=== PATIENT | male | born 1985 | race Caucasian/White ===

== ENCOUNTER 2023-12-16 19:56 | Observation (INO) | payer OTHER ==
--- NOTE | 2023-12-16 20:31 | ED ---
General Adult HPI - General Chief complaint: Extremity Problem,Nontraumatic Stated complaint: Facial Swelling, Legs Swelling Time Seen by Provider: 12/16/23 20:15 Source: patient, EMS, RN notes reviewed Mode of arrival: EMS - History of Present Illness Initial comments: 38-year-old male with history of alcoholic cirrhosis of the liver and hepatitis C who presents emergency department via EMS from incarceration for chief complaint of edema. Patient states over the past 2 days he has been experiencing bilateral lower extremity edema in addition to thyroid edema. Patient denies pain with extraocular eye movement, blurry or double vision. Patient does take 20 mg of furosemide daily for water retention and has been taking this as prescribed.. He is denying abdominal pain, nausea, vomiting, fevers, chills, shortness of breath, chest pain or difficulty breathing. Patient was started on Rocephin prescribed by provider at [facility] with concern for oral infection. - Related Data Home Medications Medication Instructions Recorded Confirmed cloNIDine HCL [Catapres] 0.1 mg PO DAILY 08/18/14 10/29/14 raNITIdine HCL [Zantac] 150 mg PO DAILY 08/18/14 10/29/14 Buprenorphine HCl/Naloxone HCl 1 each SL DAILY 10/29/14 10/29/14 [Suboxone 8 mg-2 mg Sl Film] Allergies Allergy/AdvReac Type Severity Reaction Status Date / Time No Known Allergies Allergy Verified 12/16/23 20:11 Review of Systems ROS Statement: Those systems with pertinent positive or pertinent negative responses have been documented in the HPI. ROS Other: All systems not noted in ROS Statement are negative. Past Medical History Past Medical History: Hypertension History of Any Multi-Drug Resistant Organisms: None Reported Past Surgical History: Tonsillectomy Past Psychological History: No Psychological Hx Reported Past Alcohol Use History: Daily Past Drug Use History: IV Drug Use, Marijuana, Prescription Drug Abuse General Exam General appearance: alert, in no apparent distress Head exam: Present: atraumatic, normocephalic, normal inspection Eye exam: Present: normal appearance, PERRL, periorbital swelling Expanded Sclera/Conjunctival: Exudate: Bilateral ENT exam: Present: normal exam, mucous membranes moist Neck exam: Present: normal inspection. Absent: tenderness, meningismus, lymphadenopathy Respiratory exam: Present: normal lung sounds bilaterally, decreased breath sounds. Absent: respiratory distress, wheezes, rales, rhonchi, stridor Cardiovascular Exam: Present: regular rate, normal rhythm, normal heart sounds. Absent: systolic murmur, diastolic murmur, rubs, gallop, clicks GI/Abdominal exam: Present: soft, distended, normal bowel sounds. Absent: tenderness, guarding, rebound, rigid Extremities exam: Present: pedal edema, other (bilateral 1+ lower extremity pitting edema, edema of the bilateral upper extremities) Back exam: Present: normal inspection Neurological exam: Present: alert, oriented X3, CN II-XII intact Psychiatric exam: Present: normal affect, normal mood Skin exam: Present: warm, dry, intact, normal color. Absent: rash Course Vital Signs 12/16/23 12/16/23 19:58 23:29 Temperature 98.1 F Pulse Rate 59 L 44 L Respiratory 18 18 Rate Blood Pressure 135/98 111/61 O2 Sat by Pulse 96 96 Oximetry Medical Decision Making - Medical Decision Making Was pt. sent in by a medical professional or institution (, PA, PLASTICS FACTORY WORKER, urgent care, hospital, or jail...) When possible be specific @ -No Did you speak to anyone other than the patient for history (EMS, parent, family, police, friend...)? What history was obtained from this source @ -No Did you review nursing and triage notes (agree or disagree)? Why? @ -I reviewed and agree with nursing and triage notes Were old charts reviewed (outside hosp., previous admission, EMS record, old EKG, old radiological studies, urgent care reports/EKG's, jail records)? Report findings @ -No old charts were reviewed Differential Diagnosis (chest pain, altered mental status, abdominal pain women, abdominal pain men, vaginal bleeding, weakness, fever, dyspnea, syncope, headache, dizziness, GI bleed, back pain, seizure, CVA, palpatations, mental health, musculoskeletal)? @ -Congestive heart failure, acute kidney injury, angioedema, anaphylaxis, allergic reaction, contact dermatitis, this list is not all inclusive. EKG interpreted by me (3pts min.). @ -none X-rays interpreted by me (1pt min.). @ -chest X-ray no acute cardiopulmonary process or disease. CT interpreted by me (1pt min.). @ -None done U/S interpreted by me (1pt. min.). @ -None done What testing was considered but not performed or refused? (CT, X-rays, U/S, labs)? Why? @ -None What meds were considered but not given or refused? Why? @ -None Did you discuss the management of the patient with other professionals (professionals i.e. , PA, PLASTICS FACTORY WORKER, lab, RT, psych nurse, social media director, superintendent electric power, teacher, ground nuclear weapons assembly officer, medical case worker)? Give summary @ -spoke with sound internal medicine physician, Dr. Wong, in regard to admission of the patient for peripheral edema and IV diuresis. Was smoking cessation discussed for >3mins.? @ -No Was critical care preformed (if so, how long)? @ -No Were there social determinants of health that impacted care today? How? (Homelessness, low income, unemployed, alcoholism, drug addiction, transpor tation, low edu. Level, literacy, decrease access to med. care, [facility], rehab)? @ -No Was there de-escalation of care discussed even if they declined (Discuss DNR or withdrawal of care, Hospice)? DNR status @ -No What co-morbidities impacted this encounter? (DM, HTN, Smoking, COPD, CAD, Cancer, CVA, ARF, Chemo, Hep., AIDS, mental health diagnosis, sleep apnea, morbid obesity)? @ -None Was patient admitted / discharged? Hospital course, mention meds given and route, prescriptions, significant lab abnormalities, going to OR and other pertinent info. @ -Admitted. 38-year-old male with edema. On examination patient does have bilateral lower and upper extremity nonpitting edema. Bilateral showing edema, pupils are equal round reactive and no pain on extraocular eye movement and no periorbital tenderness on palpation. He was provided with allergy cocktail including steroids, Benadryl, Pepcid. On reevaluation patient's symptoms have only improved however not significantly. Chest x-ray no acute cardiopulmonary process. CBC reveals anemia 9.3 and thrombocytopenia 44, CMP with transaminitis with total bili 5.7, AST 109, alk phos 230. BNP and troponin within normal limits. Low albumin and total protein. Admitted to internal medicine for further evaluation of edema and continued on IV diuresis. Discussed with Dr. Galvan Undiagnosed new problem with uncertain prognosis? @ -No Drug Therapy requiring intensive monitoring for toxicity (Heparin, Nitro, Insulin, Cardizem)? @ -No Were any procedures done? @ -No Diagnosis/symptom? @ -peripheral edema Acute, or Chronic, or Acute on Chronic? @ -acute Uncomplicated (without systemic symptoms) or Complicated (systemic symptoms)? @ -complicated Side effects of treatment? @ -No Exacerbation, Progression, or Severe Exacerbation? @ -No Poses a threat to life or bodily function? How? (Chest pain, USA, DC, pneumonia, PE, COPD, DKA, ARF, appy, cholecystitis, CVA, Diverticulitis, Homicidal, Suicidal, threat to staff... and all critical care pts) @ -No - Lab Data Result diagrams: 12/16/23 22:00 12/16/23 22:00 Lab Results 12/16/23 12/16/23 12/16/23 Range/Units 22:00 22:00 22:00 WBC 3.9 (3.8-10.6) k/uL RBC 2.84 L (4.30-5.90) m/uL Hgb 9.3 L (13.0-17.5) gm/dL Hct 29.0 L (39.0-53.0) % MCV 102.2 H (80.0-100.0) fL MCH 32.6 (25.0-35.0) pg MCHC 31.9 (31.0-37.0) g/dL RDW 15.1 (11.5-15.5) % Plt Count 44 L (150-450) k/uL MPV 9.2 Neutrophils % 66 % Lymphocytes % 15 % Monocytes % 11 % Eosinophils % 3 % Basophils % 1 % Neutrophils # 2.6 (1.3-7.7) k/uL Lymphocytes # 0.6 L (1.0-4.8) k/uL Monocytes # 0.4 (0-1.0) k/uL Eosinophils # 0.1 (0-0.7) k/uL Basophils # 0.0 (0-0.2) k/uL Manual Slide Review Performed Polychromasia Present Hypochromasia Moderate Macrocytosis Slight Sodium 135 L (137-145) mmol/L Potassium 3.4 L (3.5-5.1) mmol/L Chloride 105 (98-107) mmol/L Carbon Dioxide 26 (22-30) mmol/L Anion Gap 4 mmol/L BUN 3 L (9-20) mg/dL Creatinine 0.51 L (0.66-1.25) mg/dL Est GFR (CKD-EPI)AfAm >90 (>60 ml/min/1.73 sqM) Est GFR (CKD-EPI)NonAf >90 (>60 ml/min/1.73 sqM) Glucose 94 (74-99) mg/dL Plasma Lactic Acid João 1.3 (0.7-2.0) mmol/L Calcium 7.3 L (8.4-10.2) mg/dL Phosphorus 3.0 (2.5-4.5) mg/dL Magnesium 1.6 (1.6-2.3) mg/dL Total Bilirubin 5.7 H (0.2-1.3) mg/dL AST 109 H (17-59) U/L ALT 37 (4-49) U/L Alkaline Phosphatase 230 H (38-126) U/L Troponin I (0.000-0.034) ng/mL NT-Pro-B Natriuret Pep 166 pg/mL Total Protein 5.5 L (6.3-8.2) g/dL Albumin 2.3 L (3.5-5.0) g/dL 12/16/23 Range/Units 22:00 WBC (3.8-10.6) k/uL RBC (4.30-5.90) m/uL Hgb (13.0-17.5) gm/dL Hct (39.0-53.0) % MCV (80.0-100.0) fL MCH (25.0-35.0) pg MCHC (31.0-37.0) g/dL RDW (11.5-15.5) % Plt Count (150-450) k/uL MPV Neutrophils % % Lymphocytes % % Monocytes % % Eosinophils % % Basophils % % Neutrophils # (1.3-7.7) k/uL Lymphocytes # (1.0-4.8) k/uL Monocytes # (0-1.0) k/uL Eosinophils # (0-0.7) k/uL Basophils # (0-0.2) k/uL Manual Slide Review Polychromasia Hypochromasia Macrocytosis Sodium (137-145) mmol/L Potassium (3.5-5.1) mmol/L Chloride (98-107) mmol/L Carbon Dioxide (22-30) mmol/L Anion Gap mmol/L BUN (9-20) mg/dL Creatinine (0.66-1.25) mg/dL Est GFR (CKD-EPI)AfAm (>60 ml/min/1.73 sqM) Est GFR (CKD-EPI)NonAf (>60 ml/min/1.73 sqM) Glucose (74-99) mg/dL Plasma Lactic Acid João (0.7-2.0) mmol/L Calcium (8.4-10.2) mg/dL Phosphorus (2.5-4.5) mg/dL Magnesium (1.6-2.3) mg/dL Total Bilirubin (0.2-1.3) mg/dL AST (17-59) U/L ALT (4-49) U/L Alkaline Phosphatase (38-126) U/L Troponin I <0.012 (0.000-0.034) ng/mL NT-Pro-B Natriuret Pep pg/mL Total Protein (6.3-8.2) g/dL Albumin (3.5-5.0) g/dL Disposition Clinical Impression: Peripheral edema, Edema of eyelid of both eyes Disposition: ADMITTED IP TO THIS [facility] Condition: Good Decision to Admit Reason: Admit from EC Decision Date: 12/17/23 Decision Time: 02:00
--- NOTE | 2023-12-16 21:58 | XR ---
EXAMINATION TYPE: XR chest 2V DATE OF EXAM: 12/16/2023 9:52 PM CLINICAL INDICATION: Male, 38 years old with history of anasarca, sob/CP; [facility] COMPARISON: None TECHNIQUE: XR chest 2V Frontal view of the chest. FINDINGS: Lungs/Pleura: There is no evidence of pleural effusion, focal consolidation, or pneumothorax. Pulmonary vascularity: Unremarkable. Heart/mediastinum: Cardiomediastinal silhouette is unremarkable. Musculoskeletal: No acute osseous pathology. Other findings: None IMPRESSION: No acute cardiopulmonary disease/process.
[2023-12-16 22:46] LABS: ALT 37 U/L (4-49); AST 109 U/L (17-59); African American GFR (CKD) >90 (>60 ml/min/1.73 sqM); Albumin 2.3 g/dL (3.5-5.0); Alkaline Phosphatase 230 U/L (38-126); Anion Gap 4 mmol/L; Blood Urea Nitrogen 3 mg/dL (9-20); Calcium 7.3 mg/dL (8.4-10.2); Carbon Dioxide 26 mmol/L (22-30); Chloride 105 mmol/L (98-107); Glucose 94 mg/dL (74-99); Magnesium 1.6 mg/dL (1.6-2.3); Non-African American GFR(CKD) >90 (>60 ml/min/1.73 sqM); Potassium 3.4 mmol/L (3.5-5.1); Sodium 135 mmol/L (137-145); Total Bilirubin 5.7 mg/dL (0.2-1.3); Total Protein 5.5 g/dL (6.3-8.2)
[2023-12-16 22:49] LABS: NT-Pro-B-Type Natriuretic Pept 166 pg/mL
[2023-12-16 23:21] LABS: Basophils % (A) 1 %; Eosinophils # (A) 0.1 k/uL (0-0.7); Eosinophils % (A) 3 %; HGB 9.3 gm/dL (13.0-17.5); Hypochromasia Moderate; Lymphocytes # (A) 0.6 k/uL (1.0-4.8); Lymphocytes % (A) 15 %; MCH 32.6 pg (25.0-35.0); MCHC 31.9 g/dL (31.0-37.0); MCV 102.2 fL (80.0-100.0); Macrocytosis Slight; Mean Platelet Volume 9.2; Monocytes # (A) 0.4 k/uL (0-1.0); Monocytes % (A) 11 %; Neutrophils # (A) 2.6 k/uL (1.3-7.7); Neutrophils % (A) 66 %; RBC 2.84 m/uL (4.30-5.90); RDW 15.1 % (11.5-15.5); WBC 3.9 k/uL (3.8-10.6)
[2023-12-17] MEDS: DEXAMETHASONE SOD PHOSPHATE 4 MG/ML 1 ML VIAL IVP STA (00:34)
[2023-12-17] MEDS: diphenhydrAMINE 50 MG/ML 1 ML VIAL IVP STA (00:34)
[2023-12-17] MEDS: FAMOTIDINE 20 MG/2 ML VIAL IV STA (00:35)
[2023-12-17] MEDS ORDERED: NALOXONE 0.4 MG/ML 1 ML VIAL IV PRN (02:00)
[2023-12-17 02:41] LABS: Platelet Count 44 k/uL (150-450); Polychromasia Present
[2023-12-17 04:11] LABS: INR 2.3 (<1.2); Partial Thromboplastin Time 36.8 sec (22.0-30.0); Prothrombin Time 23.2 sec (10.0-12.5)
--- NOTE | 2023-12-17 05:21 | P.HPIM ---
History of Present Illness H&P Date: 12/17/23 Patient is a 38-year-old male with a PMH of alcoholic cirrhosis, brought in from [facility] for anasarca and facial swelling. The patient reports that his symptoms started on Sunday morning suddenly with some head and face swelling. He does report chronic bilateral lower extremity edema which he attributes to his cirrhosis and has undergone paracentesis in the past. The patient has also been following with a open cut examiner out of [place]. He has been incarcerated for the past 2 days however. Does report eating the new meals at the [facility] but not having received any new medications. The patient did however get ceftriaxone after he was noticed to have facial swelling and possible dental abscess. The swelling however continued to worsen despite the antibiotic. Patient has no other complaints at the time of injury. He denies experiencing difficulty breathing or swallowing, chest discomfort, shortness of breath, fever, chills, cough, nausea, vomiting, abdominal pain, diarrhea. He denies any prior history of such facial swelling despite having longstanding history of lower extremity edema. In the emergency room a chest x-ray was unremarkable. Laboratory evaluation showing hemoglobin 9.3, platelet count 44, INR 2.3, sodium 135, potassium 3.4, BUN 3, creatinine 0.51, lactic acid 1.3, with total bilirubin 5.7, AST 109, troponin less than 0.012 and albumin 2.3. ED documentation reviewed and case discussed with ED provider. Review of systems: Pertinent positives and negatives as discussed in HPI, a complete review of systems was performed and all other systems are negative. Physical examination: Vital signs reviewed General: non toxic, jaundiced, no distress, appears older than stated age, normal weight Derm: no unusual rashes/lesions, warm Head: atraumatic, normocephalic, symmetric Eyes: EOMI, periorbital edema, anicteric sclera, pupils equal round reactive to light ENT: Nose and ears atraumatic Neck: No cervical lymphadenopathy, trachea midline, supple Mouth: no lip lesion, mucus membranes moist Cardiovascular: S1S2 reg, no murmur, positive dorsalis pedis pulse bilateral, 2+ bilateral lower extremity pitting edema Lungs: CTA bilateral, no rhonchi, no rales, no accessory muscle use Abdominal: soft, nontender to palpation, no guarding Ext: muscle strength 5 out of 5 in all 4 extremities grossly, no gross muscle atrophy, no contractures, Neuro: CN II-XI grossly intact, no gross focal neuro deficits Psych: Alert, oriented, appropriate affect Assessment: Angioedema, unclear etiology, initial episode Alcoholic cirrhosis Hypokalemia Thrombocytopenia, likely due to alcohol abuse Imaging: In the emergency room a chest x-ray was unremarkable. Data Review: Laboratory evaluation showing hemoglobin 9.3, platelet count 44, INR 2.3, sodium 135, potassium 3.4, BUN 3, creatinine 0.51, lactic acid 1.3, with total bilirubin 5.7, AST 109, troponin less than 0.012 and albumin 2.3. Plan: Patient is status post Decadron and Benadryl in the emergency room Continue with Lasix 40 mg IV twice daily Continue prednisone 40 mg p.o. daily Cardiac monitoring Replace potassium and monitor Monitor CBC F/u complement levels DVT prophylaxis: IPCDs The patient is admitted with an anticipated less than 2 midnight stay for evaluation of angioedema CODE STATUS: Full Code Discussed with: Patient Anticipated discharge place: [facility] Past Medical History Past Medical History: Hypertension History of Any Multi-Drug Resistant Organisms: None Reported Past Surgical History: Tonsillectomy Additional Past Surgical History / Comment(s): Pericentisis Past Psychological History: No Psychological Hx Reported Past Alcohol Use History: Daily Past Drug Use History: IV Drug Use, Marijuana, Prescription Drug Abuse - Past Family History Mother Family Medical History: Hyperlipidemia Medications and Allergies Home Medications Medication Instructions Recorded Confirmed Type cloNIDine HCL [Catapres] 0.1 mg PO DAILY 08/18/14 10/29/14 History raNITIdine HCL [Zantac] 150 mg PO DAILY 08/18/14 10/29/14 History Buprenorphine HCl/Naloxone HCl 1 each SL DAILY 10/29/14 10/29/14 History [Suboxone 8 mg-2 mg Sl Film] Allergies Allergy/AdvReac Type Severity Reaction Status Date / Time No Known Allergies Allergy Verified 12/16/23 20:11 Physical Exam Vitals: Vital Signs Temp Pulse Resp BP Pulse Ox 12/17/23 02:50 76 18 115/87 96 12/16/23 23:29 44 L 18 111/61 96 12/16/23 19:58 98.1 F 59 L 18 135/98 96 Intake and Output 08/25/24 08/25/24 08/26/24 14:59 22:59 06:59 Other: Weight 95.254 kg 95.254 kg Results CBC & Chem 7: 12/16/23 22:00 12/16/23 22:00 Labs: Abnormal Lab Results - Last 24 Hours (Table) 12/16/23 12/16/23 12/17/23 Range/Units 22:00 22:00 03:15 RBC 2.84 L (4.30-5.90) m/uL Hgb 9.3 L (13.0-17.5) gm/dL Hct 29.0 L (39.0-53.0) % MCV 102.2 H (80.0-100.0) fL Plt Count 44 L (150-450) k/uL Lymphocytes # 0.6 L (1.0-4.8) k/uL PT 23.2 H (10.0-12.5) sec INR 2.3 H (<1.2) APTT 36.8 H (22.0-30.0) sec Sodium 135 L (137-145) mmol/L Potassium 3.4 L (3.5-5.1) mmol/L BUN 3 L (9-20) mg/dL Creatinine 0.51 L (0.66-1.25) mg/dL Calcium 7.3 L (8.4-10.2) mg/dL Total Bilirubin 5.7 H (0.2-1.3) mg/dL AST 109 H (17-59) U/L Alkaline Phosphatase 230 H (38-126) U/L Total Protein 5.5 L (6.3-8.2) g/dL Albumin 2.3 L (3.5-5.0) g/dL
[2023-12-17] MEDS: MAGNESIUM SULFATE-D5W PMX 1 GM in DEXTROSE/WATER 1 100ML.BAG IVPB SCH (05:57)
[2023-12-17] MEDS: FUROSEMIDE 10 MG/ML 4 ML VIAL IV SCH (08:22)
[2023-12-17] MEDS: predniSONE 20 MG TAB PO SCH (08:22)
[2023-12-17] MEDS: FUROSEMIDE 10 MG/ML 4 ML VIAL ONE (11:23)
[2023-12-17] MEDS: SPIRONOLACTONE 25 MG TAB PO SCH (11:47)
--- NOTE | 2023-12-17 13:24 | P.CRDCN ---
History of Present Illness History of present illness: HISTORY OF PRESENT ILLNESS: This is a 38-year-old male with a past medical history significant for hepatitis C, liver cirrhosis, ascites, heroin use, and nicotine dependence. Patient does not follow with a speech instructor. We have been asked to see the patient in consultation for congestive heart failure. Patient examined at the bedside. Patient states he was picked up by law enforcement on Sunday secondary to unpaid child support. He has been in longterm since that time. He reports that he started to get lower extremity swelling and also facial swelling on Sunday that continued to get worse. He states on Sunday he was working and laid a bunch of drywall and states when he is on his feet for a long time they usually get swollen. He states after work on Sunday he does report having a few alcoholic beverages. He states he has been compliant with his diuretics on an outpatient basis. The patient does have a history of heroin abuse but stopped using in 2010. He reports occasional alcohol use. He states that he does use a vape pen but 1 pen will last him approximately 2 months. Patient states he does follow with a clinical faculty in [place] where he resides. He denies following with a speech instructor and denies any cardiac history. DIAGNOSTICS: - EKG reveals sinus bradycardia with no signs of acute ischemia. Prolonged QT. - Chest xray negative for acute process - Laboratory data: WBC 3.9. Hemoglobin 9.3. Platelet count 44. INR 2.3. Sodium 135. Potassium 3.4. BUN 3. Creatinine 0.51. Troponin negative x 1. proBNP 166. - Current home cardiac medications include propranolol 20 mg 3 times a day, Lasix 40 mg twice a day, and Aldactone 50 mg daily REVIEW OF SYSTEMS: At the time of my exam: CONSTITUTIONAL: Denies fever or chills. HEENT: Denies blurred vision, vision changes, or eye pain. Denies hemoptysis CARDIOVASCULAR: Denies chest pain. Denies orthopnea. Denies PND. Denies palpitations RESPIRATORY: Denies shortness of breath. GASTROINTESTINAL: Denies abdominal pain. Denies nausea or vomiting. HEMATOLOGIC: Denies bleeding disorders. GENITOURINARY: Denies any blood in urine. SKIN: Denies pruitis. Denies rash. PHYSICAL EXAM: VITAL SIGNS: Reviewed. GENERAL: Well-developed in no acute distress. HEENT: Facial edema noted. Head is normocephalic. Pupils are equal, round. Sclerae anicteric. Mucous membranes of the mouth are moist. Neck supple. No JVD or thyromegaly LUNGS: Respirations even and unlabored. Lungs essentially clear to auscultation bilaterally. HEART: Regular rate and rhythm. S1 and S2 heard. Systolic murmur noted. ABDOMEN: Soft. Nondistended. Nontender. EXTREMITIES: Normal range of motion. No clubbing or cyanosis. Peripheral pulses intact. 1+ bilateral lower extremity edema NEUROLOGIC: Awake and alert. Oriented x 3. ASSESSMENT: Increased lower extremity edema and facial swelling, likely secondary to liver disease, no evidence of acute CHF, BNP 166 Prolonged QT History of liver cirrhosis secondary to alcohol abuse Thrombocytopenia Coagulopathy, secondary to liver disease History of hepatitis C History of heroin use, 2010 Continued alcohol use Nicotine dependence PLAN: Obtain 2D echo to assess cardiac structure and function Discontinue IV Lasix Resume home cardiac medications Abstinence from alcohol and nicotine recommended Further recommendations pending patient course Nurse practitioner note has been reviewed by physician. Signing provider agrees with the documented findings, assessment, and plan of care documented by CHLORINE OPERATOR as a scribe. Past Medical History Past Medical History: Hypertension History of Any Multi-Drug Resistant Organisms: None Reported Past Surgical History: Tonsillectomy Additional Past Surgical History / Comment(s): Pericentisis Past Psychological History: No Psychological Hx Reported Past Alcohol Use History: Daily Past Drug Use History: IV Drug Use, Marijuana, Prescription Drug Abuse - Past Family History Mother Family Medical History: Hyperlipidemia Medications and Allergies Home Medications Medication Instructions Recorded Confirmed Type Albuterol Nebulized [Ventolin 2.5 mg INHALATION RT-TID PRN 12/17/23 12/17/23 History Nebulized] Ferrous Sulfate [Feosol] 325 mg PO DAILY 12/17/23 12/17/23 History Furosemide [Lasix] 40 mg PO BID 12/17/23 12/17/23 History KETOROLAC (30 mg/mL) [TORADOL (30 30 mg IM ONCE 12/17/23 12/17/23 History mg/mL)] Pantoprazole Sodium [Protonix] 20 mg PO BID 12/17/23 12/17/23 History Propranolol [Inderal] 20 mg PO TID 12/17/23 12/17/23 History Spironolactone [Aldactone] 50 mg PO DAILY 12/17/23 12/17/23 History Sucralfate [Carafate] 1 gm PO TID 12/17/23 12/17/23 History cefTRIAXone [Rocephin] 1 gm IVPB ONCE 12/17/23 12/17/23 History Allergies Allergy/AdvReac Type Severity Reaction Status Date / Time No Known Allergies Allergy Verified 12/17/23 10:20 Physical Exam Vitals: Vital Signs Temp Pulse Resp BP Pulse Ox 12/17/23 02:50 76 18 115/87 96 12/16/23 23:29 44 L 18 111/61 96 12/16/23 19:58 98.1 F 59 L 18 135/98 96 Intake and Output 12/16/23 12/17/23 12/17/23 22:59 06:59 14:59 Other: # Voids 0 Weight 95.254 kg 95.254 kg Results 12/16/23 22:00 12/16/23 22:00 Cardiac Enzymes 12/16/23 12/16/23 Range/Units 22:00 22:00 AST 109 H (17-59) U/L Troponin I <0.012 (0.000-0.034) ng/mL Coagulation 12/17/23 Range/Units 03:15 PT 23.2 H (10.0-12.5) sec APTT 36.8 H (22.0-30.0) sec CBC 12/16/23 Range/Units 22:00 WBC 3.9 (3.8-10.6) k/uL RBC 2.84 L (4.30-5.90) m/uL Hgb 9.3 L (13.0-17.5) gm/dL Hct 29.0 L (39.0-53.0) % Plt Count 44 L (150-450) k/uL Comprehensive Metabolic Panel 12/16/23 Range/Units 22:00 Sodium 135 L (137-145) mmol/L Potassium 3.4 L (3.5-5.1) mmol/L Chloride 105 (98-107) mmol/L Carbon Dioxide 26 (22-30) mmol/L BUN 3 L (9-20) mg/dL Creatinine 0.51 L (0.66-1.25) mg/dL Glucose 94 (74-99) mg/dL Calcium 7.3 L (8.4-10.2) mg/dL AST 109 H (17-59) U/L ALT 37 (4-49) U/L Alkaline Phosphatase 230 H (38-126) U/L Total Protein 5.5 L (6.3-8.2) g/dL Albumin 2.3 L (3.5-5.0) g/dL Current Medications Generic Name Dose Route Start Last Admin Trade Name Freq PRN Reason Stop Dose Admin Furosemide 40 mg 12/17/23 09:00 12/17/23 08:22 Furosemide 10 Mg/Ml 4 Ml Vial IV 40 mg BID WHIT Administration Naloxone HCl 0.2 mg 12/17/23 02:00 Naloxone 0.4 Mg/Ml 1 Ml Vial IV Q2M PRN Opioid Reversal Prednisone 40 mg 12/17/23 09:00 12/17/23 08:22 Prednisone 20 Mg Tab PO 40 mg DAILY WHIT Administration Intake and Output 12/16/23 12/17/23 12/17/23 22:59 06:59 14:59 Other: # Voids 0 Weight 95.254 kg 95.254 kg 12/16/23 22:00 12/16/23 22:00
[2023-12-17] MEDS: SUCRALFATE 1 GM TAB PO SCH (15:55)
[2023-12-17] MEDS: PROPRANOLOL 20 MG TAB PO SCH (15:55)
[2023-12-17] MEDS: FUROSEMIDE 40 MG TAB PO SCH (15:55)
[2023-12-17] MEDS: PANTOPRAZOLE 40 MG TABLET PO SCH (21:05)
[2023-12-17 22:27] LABS: Total Protein,Urine Random 13.3 mg/dL (0.0-13.5)
[2023-12-18 06:54] LABS: Basophils % (A) 0 %; Eosinophils % (A) 0 %; HGB 8.8 gm/dL (13.0-17.5); Hypochromasia Marked; Lymphocytes # (A) 0.5 k/uL (1.0-4.8); Lymphocytes % (A) 8 %; MCH 32.9 pg (25.0-35.0); MCHC 31.5 g/dL (31.0-37.0); MCV 104.6 fL (80.0-100.0); Macrocytosis Moderate; Mean Platelet Volume 10.4; Monocytes # (A) 0.4 k/uL (0-1.0); Monocytes % (A) 6 %; Neutrophils # (A) 5.2 k/uL (1.3-7.7); Neutrophils % (A) 82 %; Platelet Count 52 k/uL (150-450); RBC 2.68 m/uL (4.30-5.90); RDW 15.2 % (11.5-15.5); WBC 6.3 k/uL (3.8-10.6)
[2023-12-18] MEDS ORDERED: ALBUTEROL NEBULIZED 2.5 MG/3 ML INHALATION PRN (09:00)
[2023-12-18] MEDS: FERROUS SULFATE 325 MG TAB PO SCH (09:12)
--- NOTE | 2023-12-18 09:59 | CA ---
Transthoracic Echo Report Name: Christian French Age: 38 Gender: M : 1985 Exam Date: 12/17/2023 15:33 Exam Location: [facility] Ht (in): 72 Wt (lb): 210 Ordering Physician: Natalia Mcdowell Attending/Referring Phys: [id number], July Flat Knitter Helper Bri Avery RDCS Procedure CPT: Indications: LV function, lower extremity edema Cardiac Hx: Technical Quality: Good Contrast 1: Total Dose (mL): Contrast 2: Total Dose (mL): MEASUREMENTS (Male / Female) Normal Values 2D ECHO LV Diastolic Diameter PLAX 5.8 cm 4.2 - 5.9 / 3.9 - 5.3 cm LV Systolic Diameter PLAX 3.6 cm IVS Diastolic Thickness 1.0 cm 0.6 - 1.0 / 0.6 - 0.9 cm LVPW Diastolic Thickness 1.1 cm 0.6 - 1.0 / 0.6 - 0.9 cm LV Relative Wall Thickness 0.4 LVOT Diameter 2.4 cm LV Diastolic Volume MOD BP 243.1 cm??? 67 - 155 / 56 - 104 cm??? LV Systolic Volume MOD BP 88.5 cm??? 22 - 58 / 19 - 49 cm??? LV Ejection Fraction MOD BP 63.6 % >= 55 % LV Cardiac Index MOD BP 3763.3 cm???/min???m??? LV Diastolic Volume MOD 4C 225.9 cm??? LV Systolic Volume MOD 4C 85.7 cm??? LV Ejection Fraction MOD 4C 62.0 % LV Cardiac Index MOD 4C 3412.6 cm???/min???m??? LV Diastolic Length 4C 10.5 cm LV Systolic Length 4C 8.3 cm LV Diastolic Volume MOD 2C 256.7 cm??? LV Systolic Volume MOD 2C 90.3 cm??? LV Ejection Fraction MOD 2C 64.8 % LV Cardiac Index MOD 2C 4051.0 cm???/min???m??? LV Diastolic Length 2C 10.7 cm LV Systolic Length 2C 8.1 cm LA Volume 123.1 cm??? 18 - 58 / 22 - 52 cm??? LA Volume Index 55.5 cm???/m??? 16 - 28 cm???/m??? Ascending Aorta Diameter 2.9 cm DOPPLER AV Peak Velocity 234.8 cm/s AV Peak Gradient 22.1 mmHg AV Mean Velocity 154.6 cm/s AV Mean Gradient 11.0 mmHg AV Velocity Time Integral 47.7 cm LVOT Peak Velocity 160.4 cm/s LVOT Peak Gradient 10.3 mmHg LVOT Velocity Time Integral 35.5 cm LVOT Stroke Volume 155.5 cm??? LVOT Stroke Volume Index 71.5 ml/m??? LVOT Cardiac Index 3787.1 cm???/min???m??? AV Area Cont Eq vti 3.3 cm??? AV Area Cont Eq pk 3.0 cm??? MV Area PHT 2.8 cm??? Mitral E Point Velocity 104.2 cm/s Mitral A Point Velocity 50.2 cm/s Mitral E to A Ratio 2.1 MV Deceleration Time 269.4 ms TR Peak Velocity 283.8 cm/s TR Peak Gradient 32.2 mmHg Right Atrial Pressure 10.0 mmHg Pulmonary Artery Systolic Pressu 42.2 mmHg Right Ventricular Systolic Press 42.2 mmHg PV Peak Velocity 126.0 cm/s PV Peak Gradient 6.3 mmHg FINDINGS Left Ventricle Left ventricular ejection fraction is estimated at 60-65 %. Left ventricular wall thickness normal. No obvious regional wall motion abnormalities. Right Ventricle Right ventricular dilatation with normal function. Mildly elevated right ventricular systolic pressure. Right Atrium Mild right atrial dilatation. Left Atrium Severely increased left atrial volume. Mildly increased left atrial area. Mitral Valve Structurally normal mitral valve. No evidence for mitral valve prolapse. No mitral stenosis. Trace mitral regurgitation. Aortic Valve Trileaflet aortic valve. No aortic regurgitation. No aortic stenosis. High flow velocities through the outflow tract. Tricuspid Valve Structurally normal tricuspid valve. No tricuspid stenosis. Mild tricuspid regurgitation. Pulmonic Valve Structurally normal pulmonic valve. No pulmonic stenosis. Trace pulmonic regurgitation. Pericardium No pericardial effusion. Aorta Normal size aortic root and proximal ascending aorta. CONCLUSIONS Left ventricular ejection fraction 60-65% with normal diastolic parameters RVSP 42 Mildly dilated left atrium Mild increase LVOT Mild tricuspid regurgitation Previewed by: Dr. Brayden Jacobson DO (Electronically Signed) Final Date: 18 December 2023 09:58
[2023-12-18 10:32] LABS: ALT 31 U/L (10-49); AST 61 U/L (14-35); Albumin 2.4 g/dL (3.8-4.9); Albumin/Globulin Ratio 0.92 Ratio (1.60-3.17); Alkaline Phosphatase 285 U/L (41-126); BUN/Creat Ratio 8.33 Ratio (12.00-20.00); Calcium 7.3 mg/dL (8.7-10.3); Carbon Dioxide 23.9 mmol/L (21.6-31.8); Chloride 106 mmol/L (96-109); Globulin 2.6 g/dL (1.6-3.3); Glucose 147 mg/dL (70-110); Potassium 3.1 mmol/L (3.5-5.5); Sodium 137 mmol/L (135-145); Total Bilirubin 4.4 mg/dL (0.3-1.2)
--- NOTE | 2023-12-18 12:48 | P.PN ---
Subjective HISTORY OF PRESENT ILLNESS: This is a 38-year-old male with a past medical history significant for hepatitis C, liver cirrhosis, ascites, heroin use, and nicotine dependence. Patient does not follow with a roping tender. We have been asked to see the patient in consultation for congestive heart failure. Patient examined at the bedside. Patient states he was picked up by law enforcement on Sunday secondary to unpaid child support. He has been in [facility] since that time. He reports that he started to get lower extremity swelling and also facial swelling on Sunday that continued to get worse. He states on Sunday he was working and laid a bunch of drywall and states when he is on his feet for a long time they usually get swollen. He states after work on Sunday he does report having a few alcoholic beverages. He states he has been compliant with his diuretics on an outpatient basis. The patient does have a history of heroin abuse but stopped using in 2010. He reports occasional alcohol use. He states that he does use a vape pen but 1 pen will last him approximately 2 months. Patient states he does follow with a provider scribe in [place] where he resides. He denies following with a roping tender and denies any cardiac history. DIAGNOSTICS: - EKG reveals sinus bradycardia with no signs of acute ischemia. Prolonged QT. - Chest xray negative for acute process - Laboratory data: WBC 3.9. Hemoglobin 9.3. Platelet count 44. INR 2.3. Sodium 135. Potassium 3.4. BUN 3. Creatinine 0.51. Troponin negative x 1. proBNP 166. - Current home cardiac medications include propranolol 20 mg 3 times a day, Lasix 40 mg twice a day, and Aldactone 50 mg daily December 18, 2023 Patient examined this morning at the bedside. Patient denies chest pain or pressure. He denies shortness of breath. Echocardiogram completed revealing ejection fraction 60 to 65% PHYSICAL EXAM: VITAL SIGNS: Reviewed. GENERAL: Well-developed in no acute distress. HEENT: Facial edema noted. Head is normocephalic. Pupils are equal, round. Sclerae anicteric. Mucous membranes of the mouth are moist. Neck supple. No JVD or thyromegaly LUNGS: Respirations even and unlabored. Lungs essentially clear to auscultation bilaterally. HEART: Regular rate and rhythm. S1 and S2 heard. Systolic murmur noted. ABDOMEN: Soft. Nondistended. Nontender. EXTREMITIES: Normal range of motion. No clubbing or cyanosis. Peripheral pulses intact. 1+ bilateral lower extremity edema NEUROLOGIC: Awake and alert. Oriented x 3. ASSESSMENT: Increased lower extremity edema and facial swelling, likely secondary to liver disease, no evidence of acute CHF, BNP 166 Prolonged QT History of liver cirrhosis secondary to alcohol abuse Thrombocytopenia Coagulopathy, secondary to liver disease History of hepatitis C History of heroin use, 2010 Continued alcohol use Nicotine dependence PLAN: Continue current cardiac medications Abstinence from alcohol and nicotine recommended Stable for discharge from a cardiac standpoint We will sign off. Please reconsult if needed. Nurse practitioner note has been reviewed by physician. Signing provider agrees with the documented findings, assessment, and plan of care documented by TRANSPORTATION CONSULTANT as a scribe. Objective - Vital Signs Vital signs: Vital Signs Temp 99.2 F 12/18/23 07:00 Pulse 69 12/18/23 07:00 Resp 17 12/18/23 07:00 BP 125/74 12/18/23 07:00 Pulse Ox 100 12/18/23 07:00 FiO2 Intake & Output 12/17/23 12/18/23 12/18/23 18:59 06:59 18:59 Intake Total 1150 Balance 1150 Intake: Oral 1150 Other: # Voids 3 1 - Labs CBC & Chem 7: 12/18/23 05:32 12/18/23 05:32 Labs: Abnormal Lab Results - Last 24 Hours (Table) 12/17/23 12/18/23 Range/Units 06:14 05:32 RBC 2.68 L (4.30-5.90) m/uL Hgb 8.8 L (13.0-17.5) gm/dL Hct 28.0 L (39.0-53.0) % MCV 104.6 H (80.0-100.0) fL Plt Count 52 L (150-450) k/uL Lymphocytes # 0.5 L (1.0-4.8) k/uL Complement C4 <6.0 L (10.0-53.0) mg/dL
[2023-12-18 14:09] VITALS: BP 131/65; PULSE 64; RESP 16; TEMP 98.3
--- NOTE | 2023-12-18 15:36 | P.DS ---
Providers Date of admission: 12/17/23 02:16 Discharge Diagnosis: Angioedema, unclear etiology possibly histaminergic Anasarca Alcoholic cirrhosis Hypokalemia Thrombocytopenia Hospital Course: 38-year-old male with a PMH of alcoholic cirrhosis, brought in from prison for anasarca and facial swelling. He reported chronic bilateral lower extremity edema which he attributes to his cirrhosis and has undergone paracentesis in the past. The patient has also been following with a menagerie caretaker out of [place]. He has been incarcerated for the past 2 days however. Does report eating the new meals at the prison but not having received any new medications. The patient did however get ceftriaxone after he was noticed to have facial swelling and possible dental abscess. The swelling however continued to worsen despite the antibiotic. Patient has no other complaints at the time of injury. He denies experiencing difficulty breathing or swallowing, chest discomfort, shortness of breath, fever, chills, cough, nausea, vomiting, abdominal pain, diarrhea. He denied any prior history of such facial swelling despite having longstanding history of lower extremity edema. Patient was admitted for evaluation of angioedema.In the emergency room a chest x-ray was unremarkable. Echocardiogram showed ejection fraction of 60 to 65%. Laboratory evaluation showing hemoglobin 9.3, platelet count 44, INR 2.3, sodium 135, potassium 3.4, BUN 3, creatinine 0.51, lactic acid 1.3, with total bilirubin 5.7, AST 109, troponin less than 0.012 and albumin 2.3. Complement C4 was <6. Patient received Benadryl and Decadron in the ER. He was started on Lasix 40 mg IV twice daily and prednisone 40 mg daily. He was evaluated by cardiology. The patient's condition has improved and he will be discharged to prison. Patient will be discharged with EpiPen and will need follow-up with glassware engraver Dr. Ramos outpatient in 1 week to determine trigger for angioedema. Pt. provided with literature for anaphylaxis & angioedema and scripts for Epi-pen and Predisone were given. Pt seen and examined at bedside: Patient denies any complaints today and lying comfortably in no acute distress Vital signs reviewed and stable: Afebrile, normotensive, hemodynamically stable satting well on room air General: non toxic, no distress, appears at stated age, normal weight Derm: no unusual rashes/lesions, warm Head: atraumatic, normocephalic, symmetric Eyes: EOMI, no lid lag, anicteric sclera, pupils equal round reactive to light ENT: Nose and ears atraumatic Neck: No cervical lymphadenopathy, trachea midline, supple Mouth: no lip lesion, mucus membranes moist Cardiovascular: S1S2 reg, no murmur, positive dorsalis pedis pulse bilateral, no edema Lungs: Equal air entry bilaterally, no rhonchi, no rales, no accessory muscle use Abdominal: soft, nontender to palpation, no guarding Ext: muscle strength 5 out of 5 in all 4 extremities grossly, no gross muscle atrophy, no contractures, Neuro: CN II-XI grossly intact, no gross focal neuro deficits Psych: Alert, oriented, appropriate affect A total of 35 minutes were spent preparing this complex discharge summary. Patient was discharged on 12/18/23 @15:26. I saw and evaluated the patient during the cortez and critical portions of this encounter, and discussed the case in detail with the resident author of this note, I agree with the Assessment and Plan, and my changes, if any, are highlighted in blue. Attending physician: Lane Wong MD Primary care physician: Parmjit Cai Patient Condition at Discharge: Good Plan - Discharge Summary Discharge Rx Participant: No New Discharge Prescriptions: New EPINEPHrine - Anaphylaxis Kit [Adrenalin - Anaphylaxis Kit] 0.3 mg IM ONCE #2 kit predniSONE [Deltasone] 40 mg PO DAILY #6 tab Continue Propranolol [Inderal] 20 mg PO TID Sucralfate [Carafate] 1 gm PO TID Furosemide [Lasix] 40 mg PO BID Ferrous Sulfate [Feosol] 325 mg PO DAILY Spironolactone [Aldactone] 50 mg PO DAILY Pantoprazole Sodium [Protonix] 20 mg PO BID Albuterol Nebulized [Ventolin Nebulized] 2.5 mg INHALATION RT-TID PRN PRN Reason: Shortness Of Breath Discontinued cefTRIAXone [Rocephin] 1 gm IVPB ONCE KETOROLAC (30 mg/mL) [TORADOL (30 mg/mL)] 30 mg IM ONCE Discharge Medication List Albuterol Nebulized [Ventolin Nebulized] 2.5 mg INHALATION RT-TID PRN 12/17/23 [History] Ferrous Sulfate [Feosol] 325 mg PO DAILY 12/17/23 [History] Furosemide [Lasix] 40 mg PO BID 12/17/23 [History] Pantoprazole Sodium [Protonix] 20 mg PO BID 12/17/23 [History] Propranolol [Inderal] 20 mg PO TID 12/17/23 [History] Spironolactone [Aldactone] 50 mg PO DAILY 12/17/23 [History] Sucralfate [Carafate] 1 gm PO TID 12/17/23 [History] EPINEPHrine - Anaphylaxis Kit [Adrenalin - Anaphylaxis Kit] 0.3 mg IM ONCE #2 kit 12/18/23 [Rx] predniSONE [Deltasone] 40 mg PO DAILY #6 tab 12/18/23 [Rx] Follow up Appointment(s)/Referral(s): Luis Ramos MD [STAFF PHYSICIAN] - 1 Week None,Stated [REFERRING] - 1-2 days Patient Instructions/Handouts: Anaphylaxis (DC), Angioedema (GEN) Discharge Disposition: DC/TRANSFER COURT/LAW
== END 2023-12-18 16:21 ==
LOC: EC 19:56 → 4SSUR 12-17 02:16
PROVIDERS: ADMIT Internal Medicine; ATTEND Internal Medicine
DX: T78.3XXA Angioneurotic edema, initial encounter (principal); E87.6 Hypokalemia; D69.6 Thrombocytopenia, unspecified; R94.31 Abnormal electrocardiogram [ECG] [EKG]; K70.30 Alcoholic cirrhosis of liver without ascites; B18.2 Chronic viral hepatitis C; I10 Essential (primary) hypertension; D68.4 Acquired coagulation factor deficiency; F11.10 Opioid abuse, uncomplicated; F10.10 Alcohol abuse, uncomplicated; F17.200 Nicotine dependence, unspecified, uncomplicated; Z79.899 Other long term (current) drug therapy
CPT/HCPCS: 36415; 71046; 80053; 82570; 83605; 83735; 83880; 84100; 84156; 84484; 85025; 85610; 85730; 86160; 93005; 93306; 96365; 96366; 96375; 99285

== ENCOUNTER 2023-12-19 10:41 | Inpatient (IN) | payer OTHER ==
[2023-12-19 11:10] LABS: Glucose,Whole Blood 93 mg/dL (70-110)
[2023-12-19] MEDS: SODIUM CHLORIDE 0.9% 1,000 ML IV ONE (11:10)
[2023-12-19 11:46] LABS: ALT 38 U/L (4-49); Acetaminophen <10.0 ug/mL; African American GFR (CKD) >90 (>60 ml/min/1.73 sqM); Alcohol <10 mg/dL; Anion Gap 1 mmol/L; Blood Urea Nitrogen 9 mg/dL (9-20); Calcium 7.6 mg/dL (8.4-10.2); Carbon Dioxide 28 mmol/L (22-30); Chloride 103 mmol/L (98-107); Glucose 90 mg/dL (74-99); Non-African American GFR(CKD) >90 (>60 ml/min/1.73 sqM); Salicylate <1.0 mg/dL; Sodium 132 mmol/L (137-145); Total Bilirubin 7.6 mg/dL (0.2-1.3)
[2023-12-19 11:55] LABS: Potassium 3.5 mmol/L (3.5-5.1)
[2023-12-19 11:56] LABS: AST 99 U/L (17-59); Albumin 2.9 g/dL (3.5-5.0); Alkaline Phosphatase 331 U/L (38-126); Total Protein 6.7 g/dL (6.3-8.2)
[2023-12-19 12:07] LABS: HCT 36.9 % (39.0-53.0); HGB 11.5 gm/dL (13.0-17.5); Hypochromasia Moderate; MCHC 31.1 g/dL (31.0-37.0); Macrocytosis Slight; Mean Platelet Volume 9.2; RBC 3.58 m/uL (4.30-5.90); RDW 15.3 % (11.5-15.5)
[2023-12-19 12:42] LABS: Appearance,Urine Clear (Clear); Bilirubin,Urine Negative (Negative); Blood,Urine Negative (Negative); Color,Urine Colorless; Glucose,Urine (UA) Negative (Negative); Ketones,Urine Negative (Negative); Leukocyte Esterase,Urine Negative (Negative); Nitrite,Urine Negative (Negative); PH, Urine 7.5 (5.0-8.0); Protein,Urine Negative (Negative); Specific Gravity,Urine 1.005 (1.001-1.035); Urobilinogen,Urine <2.0 mg/dL (<2.0)
[2023-12-19 13:18] LABS: Amphetamine Screen,Urine Not Detected (NotDetected); Barbiturate Screen,Urine Not Detected (NotDetected); Benzodiazepines Screen,Urine Not Detected (NotDetected); Cocaine Screen,Urine Not Detected (NotDetected); Methadone Screen, Urine Not Detected (NotDetected); Opiate Screen,Urine Not Detected (NotDetected); Oxycodone Screen, Urine Not Detected (NotDetected); Phencyclidine Screen,Urine Not Detected (NotDetected); Tricyclic Antidepressant,Urine Not Detected (NotDetected); Urn Cannabinoid Scrn Not Detected (NotDetected)
[2023-12-19 13:25] LABS: Neutrophils % (M) 73 %; Nucleated Red Blood Cells 0 /100 WBC (0-0); Total Cells Counted 100
--- NOTE | 2023-12-19 13:31 | XR ---
EXAMINATION TYPE: XR chest 2V DATE OF EXAM: 12/19/2023 COMPARISON: NONE TECHNIQUE: PA and lateral views submitted. HISTORY: 12/16/2023 FINDINGS: The lungs are clear and there is no pneumothorax, pleural effusion, or focal pneumonia. Borderline c ardiomegaly. No overt failure. Osseous structures intact. IMPRESSION: 1. No acute process.
--- NOTE | 2023-12-19 13:33 | CT ---
EXAMINATION TYPE: CT brain wo con DATE OF EXAM: 12/19/2023 COMPARISON: 10/29/1949 HISTORY: AMS CT DLP: 1125.4 mGycm. Automated Exposure Control for Dose Reduction was Utilized. TECHNIQUE: CT scan of the head is performed without contrast. FINDINGS: There is no acute intracranial hemorrhage, mass effect, or midline shift identified. Mild degenerative change. Faint hypoattenuation the white matter most typical remote microvascular ischem ia.. The globes are intact and the visualized sinuses are clear. Prominent cisterna magna. Orbits IMPRESSION: No acute intracranial hemorrhage, mass effect, or midline shift is seen. If concern for acute ischemia correlate with MRI as clinically warranted.
[2023-12-19] MEDS: diphenhydrAMINE 50 MG/ML 1 ML VIAL IVP STA (14:29)
[2023-12-19] MEDS: LACTULOSE 20 GM/30 ML CUP PO ONE (14:29)
[2023-12-19] MEDS: LORazepam 2 MG/ML INJ IV STA (14:29)
[2023-12-19] MEDS ORDERED: NALOXONE 0.4 MG/ML 1 ML VIAL IV PRN (14:41)
--- NOTE | 2023-12-19 14:41 | ED ---
Altered Mental Status HPI - General Chief Complaint: Altered Mental Status Stated Complaint: AMS Time Seen by Provider: 12/19/23 10:50 Source: patient, police Mode of arrival: ambulatory Limitations: no limitations - History of Present Illness Initial Comments: 38-year-old male presents to the emergency department from custodial for altered mental status. Patient was hospitalized and just discharged yesterday for facial swelling. [facility] reports that the patient was supposed to have court today but he was not deemed competent to undergo that hearing due to his altered mental status. He has been taking the medications that were prescribed to him yesterday. Patient cannot provide much history. He did admit to taking lactulose at home before incarceration. Does not appear that the patient is on this medication at this time. No reported fevers. No reported trauma. Remainder of HPI is limited because of the patient's current state - Related Data Home Medications Medication Instructions Recorded Confirmed Albuterol Nebulized [Ventolin 2.5 mg INHALATION RT-TID PRN 12/17/23 12/19/23 Nebulized] Ferrous Sulfate [Feosol] 325 mg PO DAILY 12/17/23 12/19/23 Pantoprazole Sodium [Protonix] 20 mg PO BID 12/17/23 12/19/23 Sucralfate [Carafate] 1 gm PO TID 12/17/23 12/19/23 Amoxic-Pot Clav 875-125Mg 1 tab PO BID 12/19/23 12/19/23 [Augmentin 875-125] predniSONE 40 mg PO DAILY 12/19/23 12/19/23 Previous Rx's Medication Instructions Recorded Furosemide [Lasix] 40 mg PO DAILY #30 tab 12/22/23 Lactulose [Cephulac] 20 gm PO QID #3600 ml 12/22/23 Rifaximin [Xifaxan] 550 mg PO TID #90 tab 12/22/23 Spironolactone [Aldactone] 25 mg PO DAILY #30 tab 12/22/23 Allergies Allergy/AdvReac Type Severity Reaction Status Date / Time No Known Allergies Allergy Verified 12/19/23 12:26 Review of Systems ROS Statement: Those systems with pertinent positive or pertinent negative responses have been documented in the HPI. ROS Other: All systems not noted in ROS Statement are negative. Past Medical History Past Medical History: Hypertension History of Any Multi-Drug Resistant Organisms: None Reported Past Surgical History: Tonsillectomy Additional Past Surgical History / Comment(s): Pericentisis Past Psychological History: No Psychological Hx Reported Smoking Status: Current every day smoker Past Alcohol Use History: Daily Past Drug Use History: IV Drug Use, Marijuana, Prescription Drug Abuse - Past Family History Mother Family Medical History: Hyperlipidemia General Exam Limitations: altered mental status General appearance: alert, anxious Head exam: Present: atraumatic, normocephalic, normal inspection Eye exam: Present: normal appearance, PERRL, EOMI. Absent: scleral icterus, conjunctival injection, periorbital swelling ENT exam: Present: normal exam, mucous membranes moist Neck exam: Present: normal inspection. Absent: tenderness, meningismus, lymphadenopathy Respiratory exam: Present: normal lung sounds bilaterally. Absent: respiratory distress, wheezes, rales, rhonchi, stridor Cardiovascular Exam: Present: bradycardia GI/Abdominal exam: Present: soft, normal bowel sounds. Absent: distended, tenderness, guarding, rebound, rigid Neurological exam: Present: alert, altered, other (Patient has agitation and nonsensical speech) Psychiatric exam: Present: agitated Course Vital Signs 12/19/23 12/19/23 10:46 19:26 Temperature 97.7 F 98.7 F Pulse Rate 41 L 64 Respiratory 20 18 Rate Blood Pressure 138/86 110/91 O2 Sat by Pulse 100 96 Oximetry Medical Decision Making - Medical Decision Making Was pt. sent in by a medical professional or institution (, PA, LICENSED PROSTHETIST/ORTHOTIST, urgent care, hospital, or residential...) When possible be specific @ -Patient brought in from custodial Did you speak to anyone other than the patient for history (EMS, parent, family, police, friend...)? What history was obtained from this source @ -Spoke with the officer accompanying the patient Did you review nursing and triage notes (agree or disagree)? Why? @ -I reviewed and agree with nursing and triage notes Were old charts reviewed (outside hosp., previous admission, EMS record, old EKG, old radiological studies, urgent care reports/EKG's, residential records)? Report findings @ -I reviewed the discharge summary from yesterday Differential Diagnosis (chest pain, altered mental status, abdominal pain women, abdominal pain men, vaginal bleeding, weakness, fever, dyspnea, syncope, headache, dizziness, GI bleed, back pain, seizure, CVA, palpatations, mental health, musculoskeletal)? @ -Differential Altered Mental Status: Hypoglycemia, DKA, hypercapnia, ETOH, overdose, CO poisoning, trauma, myxedema coma, HTN encephalopathy, infection, encephalitis, psychosis, intercranial hemorrhage, hepatic encephalopathy, meningitis, CVA, this is not meant to be an all-inclusive list EKG interpreted by me (3pts min.). @ -Yes and demonstrates sinus bradycardia with a rate of 37. QRS 113. QTc of 458. No acute ST segment elevations or depressions X-rays interpreted by me (1pt min.). @ -None done CT interpreted by me (1pt min.). @ -Yes and demonstrates no acute intracranial process U/S interpreted by me (1pt. min.). @ -None done What testing was considered but not performed or refused? (CT, X-rays, U/S, labs)? Why? @ -None What meds were considered but not given or refused? Why? @ -None Did you discuss the management of the patient with other professionals (professionals i.e. , PA, LICENSED PROSTHETIST/ORTHOTIST, lab, RT, psych nurse, social security benefits interviewer, crisis specialist, teacher, special skills officer, shelter case manager)? Give summary @ -Spoke with Dr. Solomon for admission Was smoking cessation discussed for >3mins.? @ -No Was critical care preformed (if so, how long)? @ -No Were there social determinants of health that impacted care today? How? (Homelessness, low income, unemployed, alcoholism, drug addiction, transportation, low edu. Level, literacy, decrease access to med. care, custodial, rehab)? @ -Patient is currently in custodial Was there de-escalation of care discussed even if they declined (Discuss DNR or withdrawal of care, Hospice)? DNR status @ -No What co-morbidities impacted this encounter? (DM, HTN, Smoking, COPD, CAD, Cancer, CVA, ARF, Chemo, Hep., AIDS, mental health diagnosis, sleep apnea, morbid obesity)? @ -Hepatitis C and liver disease Was patient admitted / discharged? Hospital course, mention meds given and route, prescriptions, significant lab abnormalities, going to OR and other pertinent info. @ -Upon arrival patient seen and evaluated in trauma 4. Thorough history and physical exam was performed. IV was established. Laboratory studies are conducted. CT brain was performed. Patient is agitated and requires chemical sedation with Ativan and Benadryl. Patient is given lactulose due to his high ammonia. Will be admitted for his encephalopathy Undiagnosed new problem with uncertain prognosis? @ -No Drug Therapy requiring intensive monitoring for toxicity (Heparin, Nitro, Insulin, Cardizem)? @ -No Were any procedures done? @ -No Diagnosis/symptom? @ -Acute hepatic encephalopathy, hyperammonemia, history of hepatitis C Acute, or Chronic, or Acute on Chronic? @ -Acute on chronic Uncomplicated (without systemic symptoms) or Complicated (systemic symptoms)? @ -Complicated Side effects of treatment? @ -No Exacerbation, Progression, or Severe Exacerbation? @ -No Poses a threat to life or bodily function? How? (Chest pain, [place], CA, pneumonia, PE, COPD, DKA, ARF, appy, cholecystitis, CVA, Diverticulitis, Homicidal, Suicid al, threat to staff... and all critical care pts) @ -No - Lab Data Result diagrams: 12/22/23 06:31 12/22/23 06:31 Lab Results 12/19/23 12/19/23 12/19/23 Range/Units 11:09 11:19 11:19 WBC 10.0 (3.8-10.6) k/uL RBC 3.58 L (4.30-5.90) m/uL Hgb 11.5 L (13.0-17.5) gm/dL Hct 36.9 L (39.0-53.0) % MCV 103.0 H (80.0-100.0) fL MCH 32.0 (25.0-35.0) pg MCHC 31.1 (31.0-37.0) g/dL RDW 15.3 (11.5-15.5) % Plt Count 95 L D (150-450) k/uL MPV 9.2 Neutrophils % (Manual) 73 % Lymphocytes % (Manual) 15 % Monocytes % (Manual) 12 % Neutrophils # (Manual) 7.30 (1.3-7.7) k/uL Lymphocytes # (Manual) 1.50 (1.0-4.8) k/uL Monocytes # (Manual) 1.20 H (0-1.0) k/uL Nucleated RBCs 0 (0-0) /100 WBC Manual Slide Review Performed Hypochromasia Moderate Macrocytosis Slight Sodium 132 L (137-145) mmol/L Potassium 3.5 (3.5-5.1) mmol/L Chloride 103 (98-107) mmol/L Carbon Dioxide 28 (22-30) mmol/L Anion Gap 1 mmol/L BUN 9 (9-20) mg/dL Creatinine 0.59 L (0.66-1.25) mg/dL Est GFR (CKD-EPI)AfAm >90 (>60 ml/min/1.73 sqM) Est GFR (CKD-EPI)NonAf >90 (>60 ml/min/1.73 sqM) Glucose 90 (74-99) mg/dL POC Glucose (mg/dL) 93 (70-110) mg/dL POC Glu Can Reconditioner ID Hillary Lo Calcium 7.6 L (8.4-10.2) mg/dL Total Bilirubin 7.6 H (0.2-1.3) mg/dL AST 99 H (17-59) U/L ALT 38 (4-49) U/L Alkaline Phosphatase 331 H (38-126) U/L Ammonia (<30) umol/L Troponin I (0.000-0.034) ng/mL Total Protein 6.7 (6.3-8.2) g/dL Albumin 2.9 L (3.5-5.0) g/dL Urine Color Urine Appearance (Clear) Urine pH (5.0-8.0) Ur Specific Erick (1.001-1.035) Urine Protein (Negative) Urine Glucose (UA) (Negative) Urine Ketones (Negative) Urine Blood (Negative) Urine Nitrite (Negative) Urine Bilirubin (Negative) Urine Urobilinogen (<2.0) mg/dL Ur Leukocyte Esterase (Negative) Salicylates <1.0 mg/dL Urine Opiates Screen (NotDetected) Ur Oxycodone Screen (NotDetected) Urine Methadone Screen (NotDetected) Acetaminophen <10.0 ug/mL Ur Barbiturates Screen (NotDetected) U Tricyclic Antidepress (NotDetected) Ur Phencyclidine Scrn (NotDetected) Ur Amphetamines Screen (NotDetected) U Methamphetamines Scrn (NotDetected) U Benzodiazepines Scrn (NotDetected) Urine Cocaine Screen (NotDetected) U Marijuana (THC) Screen (NotDetected) Serum Alcohol <10 mg/dL 12/19/23 12/19/23 12/19/23 Range/Units 11:19 11:19 11:51 WBC (3.8-10.6) k/uL RBC (4.30-5.90) m/uL Hgb (13.0-17.5) gm/dL Hct (39.0-53.0) % MCV (80.0-100.0) fL MCH (25.0-35.0) pg MCHC (31.0-37.0) g/dL RDW (11.5-15.5) % Plt Count (150-450) k/uL MPV Neutrophils % (Manual) % Lymphocytes % (Manual) % Monocytes % (Manual) % Neutrophils # (Manual) (1.3-7.7) k/uL Lymphocytes # (Manual) (1.0-4.8) k/uL Monocytes # (Manual) (0-1.0) k/uL Nucleated RBCs (0-0) /100 WBC Manual Slide Review Hypochromasia Macrocytosis Sodium (137-145) mmol/L Potassium (3.5-5.1) mmol/L Chloride (98-107) mmol/L Carbon Dioxide (22-30) mmol/L Anion Gap mmol/L BUN (9-20) mg/dL Creatinine (0.66-1.25) mg/dL Est GFR (CKD-EPI)AfAm (>60 ml/min/1.73 sqM) Est GFR (CKD-EPI)NonAf (>60 ml/min/1.73 sqM) Glucose (74-99) mg/dL POC Glucose (mg/dL) (70-110) mg/dL POC Glu Can Reconditioner ID Calcium (8.4-10.2) mg/dL Total Bilirubin (0.2-1.3) mg/dL AST (17-59) U/L ALT (4-49) U/L Alkaline Phosphatase (38-126) U/L Ammonia 74 H (<30) umol/L Troponin I 0.014 (0.000-0.034) ng/mL Total Protein (6.3-8.2) g/dL Albumin (3.5-5.0) g/dL Urine Color Urine Appearance (Clear) Urine pH (5.0-8.0) Ur Specific Erick (1.001-1.035) Urine Protein (Negative) Urine Glucose (UA) (Negative) Urine Ketones (Negative) Urine Blood (Negative) Urine Nitrite (Negative) Urine Bilirubin (Negative) Urine Urobilinogen (<2.0) mg/dL Ur Leukocyte Esterase (Negative) Salicylates mg/dL Urine Opiates Screen Not Detected (NotDetected) Ur Oxycodone Screen Not Detected (NotDetected) Urine Methadone Screen Not Detected (NotDetected) Acetaminophen ug/mL Ur Barbiturates Screen Not Detected (NotDetected) U Tricyclic Antidepress Not Detected (NotDetected) Ur Phencyclidine Scrn Not Detected (NotDetected) Ur Amphetamines Screen Not Detected (NotDetected) U Methamphetamines Scrn Not Detected (NotDetected) U Benzodiazepines Scrn Not Detected (NotDetected) Urine Cocaine Screen Not Detected (NotDetected) U Marijuana (THC) Screen Not Detected (NotDetected) Serum Alcohol mg/dL 12/19/23 Range/Units 11:51 WBC (3.8-10.6) k/uL RBC (4.30-5.90) m/uL Hgb (13.0-17.5) gm/dL Hct (39.0-53.0) % MCV (80.0-100.0) fL MCH (25.0-35.0) pg MCHC (31.0-37.0) g/dL RDW (11.5-15.5) % Plt Count (150-450) k/uL MPV Neutrophils % (Manual) % Lymphocytes % (Manual) % Monocytes % (Manual) % Neutrophils # (Manual) (1.3-7.7) k/uL Lymphocytes # (Manual) (1.0-4.8) k/uL Monocytes # (Manual) (0-1.0) k/uL Nucleated RBCs (0-0) /100 WBC Manual Slide Review Hypochromasia Macrocytosis Sodium (137-145) mmol/L Potassium (3.5-5.1) mmol/L Chloride (98-107) mmol/L Carbon Dioxide (22-30) mmol/L Anion Gap mmol/L BUN (9-20) mg/dL Creatinine (0.66-1.25) mg/dL Est GFR (CKD-EPI)AfAm (>60 ml/min/1.73 sqM) Est GFR (CKD-EPI)NonAf (>60 ml/min/1.73 sqM) Glucose (74-99) mg/dL POC Glucose (mg/dL) (70-110) mg/dL POC Glu Can Reconditioner ID Calcium (8.4-10.2) mg/dL Total Bilirubin (0.2-1.3) mg/dL AST (17-59) U/L ALT (4-49) U/L Alkaline Phosphatase (38-126) U/L Ammonia (<30) umol/L Troponin I (0.000-0.034) ng/mL Total Protein (6.3-8.2) g/dL Albumin (3.5-5.0) g/dL Urine Color Colorless Urine Appearance Clear (Clear) Urine pH 7.5 (5.0-8.0) Ur Specific Erick 1.005 (1.001-1.035) Urine Protein Negative (Negative) Urine Glucose (UA) Negative (Negative) Urine Ketones Negative (Negative) Urine Blood Negative (Negative) Urine Nitrite Negative (Negative) Urine Bilirubin Negative (Negative) Urine Urobilinogen <2.0 (<2.0) mg/dL Ur Leukocyte Esterase Negative (Negative) Salicylates mg/dL Urine Opiates Screen (NotDetected) Ur Oxycodone Screen (NotDetected) Urine Methadone Screen (NotDetected) Acetaminophen ug/mL Ur Barbiturates Screen (NotDetected) U Tricyclic Antidepress (NotDetected) Ur Phencyclidine Scrn (NotDetected) Ur Amphetamines Screen (NotDetected) U Methamphetamines Scrn (NotDetected) U Benzodiazepines Scrn (NotDetected) Urine Cocaine Screen (NotDetected) U Marijuana (THC) Screen (NotDetected) Serum Alcohol mg/dL Disposition Clinical Impression: Acute encephalopathy, Hyperammonemia, Bradycardia Disposition: ADMITTED IP TO THIS [facility] Condition: Stable Is patient prescribed a controlled substance at d/c from ED?: No Time of Disposition: 14:41 Decision to Admit Reason: Admit from EC Decision Date: 12/19/23 Decision Time: 14:41
[2023-12-19 15:26] LABS: Platelet Count 95 k/uL (150-450)
--- NOTE | 2023-12-19 16:37 | P.HPIM ---
History of Present Illness H&P Date: 12/19/23 38 year old male presented to the ER with altered mental status. He was discharged yesterday for facial swelling, [facility]. Last know well was yesterday. He was under observation at a booking station. This morning around 9-9:30am, the patient's was found to be altered not oriented to time, place, or name. Patient was unable to provide history and limited information was provided from the officer in the room. ED documentation reviewed and case discussed with ED provider. Review of systems: Pertinent positives and negatives as discussed in HPI, a complete review of systems was performed and all other systems are negative. Vital signs: Afebrile, bradycardic at 41 bpm, 138/86, satting well on room air Physical examination: Vital signs reviewed General: non toxic, no distress, appears as stated age, normal weight confused not oriented to time or place only self Derm: no unusual rashes/lesions, warm Head: atraumatic, normocephalic, symmetric Eyes: EOMI, periorbital edema, anicteric sclera, pupils equal round reactive to light ENT: Nose and ears atraumatic Neck: No cervical lymphadenopathy, trachea midline, supple Mouth: no lip lesion, mucus membranes moist Cardiovascular: S1S2 reg, no murmur, positive dorsalis pedis pulse bilateral, 2+ bilateral lower extremity pitting edema Lungs: CTA bilateral, no rhonchi, no rales, no accessory muscle use Abdominal: soft, tender to palpation, slight guarding Ext: muscle strength 5 out of 5 in all 4 extremities grossly, no gross muscle atrophy, no contractures, Neuro: CN II-XI grossly intact, no gross focal neuro deficits Psych: Alert, oriented, appropriate affect Imaging: In the emergency room a chest x-ray was unremarkable. CT of the head without contrast was also unremarkable. EKG showed sinus bradycardia Data Review: Laboratory evaluation showing WBCs 10, hemoglobin 11.5 with MCV of 103, platelets 95. Sodium 132, potassium 3.5, chloride 103, bicarb 28, BUN 9, creatinine 0.59, glucose 90. Bilirubin 7.6, AST 99, ALT 38, ALP 331, albumin 2.9. Urinalysis was unremarkable. UDS was negative. Assessment: Acute encephalopathy, multiple possible etiologies: Recent corticosteroid use vs. hyponatremia vs. hepatic -Lactulose 20 g p.o. 4 times daily Rifaximin 550 mg p.o. twice daily Monitor clinical status Rule out spontaneous bacterial peritonitis, abdominal tenderness and guarding on physical exam Patient is afebrile CT abdomen pelvis stat with no contrast Decompensated liver cirrhosis, transaminitis, hyperbilirubinemia -Follow-up CT Follow up labs Thrombocytopenia Continue to monitor Macrocytic anemia Continue to monitor DVT prophylaxis: The patient is admitted for evaluation of acute encephalopathy and discharge will be pending clinical course. CODE STATUS: Full Anticipated discharge place: [facility] I saw and evaluated the patient during the cortez and critical portions of this encounter, and discussed the case in detail with the resident author of this note, I agree with the Assessment and Plan, and my changes, if any, are highlighted in blue. Past Medical History Past Medical History: Hypertension History of Any Multi-Drug Resistant Organisms: None Reported Past Surgical History: Tonsillectomy Additional Past Surgical History / Comment(s): Pericentisis Past Psychological History: No Psychological Hx Reported Smoking Status: Current every day smoker Past Alcohol Use History: Daily Past Drug Use History: IV Drug Use, Marijuana, Prescription Drug Abuse - Past Family History Mother Family Medical History: Hyperlipidemia Medications and Allergies Home Medications Medication Instructions Recorded Confirmed Type Albuterol Nebulized [Ventolin 2.5 mg INHALATION RT-TID PRN 12/17/23 12/19/23 History Nebulized] Ferrous Sulfate [Feosol] 325 mg PO DAILY 12/17/23 12/19/23 History Furosemide [Lasix] 40 mg PO BID 12/17/23 12/19/23 History Pantoprazole Sodium [Protonix] 20 mg PO BID 12/17/23 12/19/23 History Propranolol [Inderal] 20 mg PO TID 12/17/23 12/19/23 History Spironolactone [Aldactone] 50 mg PO DAILY 12/17/23 12/19/23 History Sucralfate [Carafate] 1 gm PO TID 12/17/23 12/19/23 History Amoxic-Pot Clav 875-125Mg 1 tab PO BID 12/19/23 12/19/23 History [Augmentin 875-125] predniSONE 40 mg PO DAILY 12/19/23 12/19/23 History Allergies Allergy/AdvReac Type Severity Reaction Status Date / Time No Known Allergies Allergy Verified 12/19/23 12:26 Physical Exam Osteopathic Statement: *. No significant issues noted on an osteopathic structural exam other than those noted in the History and Physical/Consult. Vitals: Vital Signs Temp Pulse Resp BP Pulse Ox 12/19/23 10:46 97.7 F 41 L 20 138/86 100 Intake and Output 12/18/23 12/19/23 12/19/23 22:59 06:59 14:59 Other: Weight 99.79 kg Results CBC & Chem 7: 12/19/23 11:19 12/19/23 11:19 Labs: Abnormal Lab Results - Last 24 Hours (Table) 12/19/23 12/19/23 12/19/23 Range/Units 11:19 11:19 11:19 RBC 3.58 L (4.30-5.90) m/uL Hgb 11.5 L (13.0-17.5) gm/dL Hct 36.9 L (39.0-53.0) % MCV 103.0 H (80.0-100.0) fL Plt Count 95 L D (150-450) k/uL Monocytes # (Manual) 1.20 H (0-1.0) k/uL Sodium 132 L (137-145) mmol/L Creatinine 0.59 L (0.66-1.25) mg/dL Calcium 7.6 L (8.4-10.2) mg/dL Total Bilirubin 7.6 H (0.2-1.3) mg/dL AST 99 H (17-59) U/L Alkaline Phosphatase 331 H (38-126) U/L Ammonia 74 H (<30) umol/L Albumin 2.9 L (3.5-5.0) g/dL
[2023-12-19] MEDS: LACTULOSE 20 GM/30 ML CUP PO SCH (17:59)
[2023-12-19] MEDS: SODIUM CHLORIDE 0.9% 1,000 ML IV SCH (17:59)
--- NOTE | 2023-12-19 18:35 | CT ---
EXAMINATION TYPE: CT abdomen pelvis wo con DATE OF EXAM: 12/19/2023 COMPARISON: None INDICATION: abnormal liver labs, jaundiced DLP: 620.7 mGycm, Automated exposure control for dose reduction was used. CONTRAST: 0 mL of Isovue 300. Study performed without Oral Contrast TECHNIQUE: Axial images were obtained from above the diaphragm to the pubic rami in the axial plane a t 5 mm thick sections. Reconstructed images are reviewed on the computer in the coronal plane. FINDINGS: Limited CT sections are obtained the lung bases. The lung bases are clear. CT ABDOMEN: Liver: Normal. No biliary dilatation is evident. Spleen: Spleen is prominent. This measures 13.9 cm. Normal less than 12.5 cm Pancreas: Normal Adrenal glands: The adrenal glands are normal. Gallbladder: Appears to be surgically absent. Kidneys: No masses are evident. No hydronephrosis is present. No cysts are present. No suspicious renal or ureteral stones evident. Aorta: Normal Inferior vena cava: Normal. CT PELVIS: Bilateral hip prostheses are present with the beam hardening artifact limiting evaluation Loops of bowel within the abdomen and pelvis are normal. Some fluid is within small bowel. Some mild ileus may be present. Study is performed without oral contrast limiting bowel evaluation. Appendix: Normal as visualized. Urinary bladder: Normal. Genitourinary structures: Prostate is poorly visualized. Osseous structures: No suspicious lytic or sclerotic lesions. IMPRESSION: 1. There may be some mild ileus within the pelvis. 2. Splenomegaly. 3. No suspicious hepatic abnormality
[2023-12-19] MEDS ORDERED: LACTULOSE 20 GM/30 ML CUP ONE ×2 (23:20)
[2023-12-19] MEDS ORDERED: RIFAXIMIN 550 MG TABLET ONE ×2 (23:20)
[2023-12-20] MEDS: RIFAXIMIN 550 MG TABLET PO SCH (05:52)
[2023-12-20 11:21] LABS: Magnesium 1.5 mg/dL (1.5-2.4)
[2023-12-20 11:29] LABS: Blood Urea Nitrogen 9.3 mg/dL (9.0-27.0); Calcium 7.1 mg/dL (8.7-10.3); Carbon Dioxide 22.2 mmol/L (21.6-31.8); Chloride 108 mmol/L (96-109); Glucose 85 mg/dL (70-110); Potassium 2.8 mmol/L (3.5-5.5); Sodium 139 mmol/L (135-145)
[2023-12-20 11:58] LABS: Basophils # (A) 0.03 X 10*3/uL (0.00-0.10); Basophils % (A) 0.3 %; Eosinophils # (A) 0.12 X 10*3/uL (0.04-0.35); Eosinophils % (A) 1.4 %; HCT 30.6 % (39.6-50.0); HGB 9.3 g/dL (13.0-17.0); Immature Platelet Fraction 4.2 % (1.1-6.1); Lymphocytes # (A) 1.25 X 10*3/uL (0.90-5.00); Lymphocytes % (A) 14.1 %; MCH 30.5 pg (27.0-32.0); MCHC 30.4 g/dL (32.0-37.0); MCV 100.3 FL (80.0-97.0); Mean Platelet Volume 11.3 FL (9.5-12.2); Monocytes # (A) 1.27 X 10*3/uL (0.20-1.00); Monocytes % (A) 14.4 %; NRBC Per 100 WBC 0 X 10*3/uL (0.00-0.01); Neutrophils # (A) 6.14 X 10*3/uL (1.80-7.70); Neutrophils % (A) 69.3 %; Platelet Count 63 X 10*3/uL (140-440); RBC 3.05 X 10*6/uL (4.40-5.60); RBC Morphology Normal (Normal); RDW 15.5 % (11.5-14.5); WBC 8.85 X 10*3/uL (4.50-10.00)
--- NOTE | 2023-12-20 13:20 | P.CRDCN ---
History of Present Illness History of present illness: HISTORY OF PRESENT ILLNESS: This is a 38-year-old male with a past medical history significant for hepatitis C, liver cirrhosis, ascites, heroin use, and nicotine dependence. 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 We have been asked to see the patient in consultation for heart block. Patient examined at the bedside. The patient was just admitted to the hospital from December 17, 2023 until December 19, 2023 for lower extremity edema and facial swelling. [facility] Patient presented back to the hospital secondary to altered mental status. The patient does not remember any of the events leading up to him coming to the hospital. Patient's mentation does seem to be improving. He currently denies chest pain or pressure. Denies shortness of breath. DIAGNOSTICS: - EKG reveals sinus bradycardia with no signs of acute ischemia - Chest xray negative for acute process - Laboratory data: WBC 10.0. Hemoglobin 11.5. Platelet count 95. Sodium 132. Potassium 3.5. BUN 9. Creatinine 0.59. AST 99. ALT 38. Alkaline phosphatase 331. Ammonia 74. - Current home cardiac medications include Lasix 40 mg twice a day, propranolol 20 mg 3 times a day, Aldactone 50 mg daily. - Most recent echocardiogram obtained this week revealed ejection fraction 60 to 65% - Cardiac catheterization history: Patient denies REVIEW OF SYSTEMS: At the time of my exam: CONSTITUTIONAL: Denies fever or chills. HEENT: Denies blurred vision, vision changes, or eye pain. Denies hemoptysis CARDIOVASCULAR: Denies chest pain. Denies orthopnea. Denies PND. Denies palpitations RESPIRATORY: Denies shortness of breath. GASTROINTESTINAL: Denies abdominal pain. Denies nausea or vomiting. HEMATOLOGIC: Denies bleeding disorders. GENITOURINARY: Denies any blood in urine. SKIN: Denies pruitis. Denies rash. PHYSICAL EXAM: VITAL SIGNS: Reviewed. GENERAL: Well-developed in no acute distress. HEENT: Head is normocephalic. Pupils are equal, round. Sclerae anicteric. Mucous membranes of the mouth are moist. Neck supple. No JVD or thyromegaly LUNGS: Respirations even and unlabored. Lungs essentially clear to auscultation bilaterally. HEART: Regular rate and rhythm. S1 and S2 heard. ABDOMEN: Soft. Nondistended. Nontender. EXTREMITIES: Normal range of motion. No clubbing or cyanosis. Peripheral pulses intact. No lower extremity edema NEUROLOGIC: Awake and alert. ASSESSMENT: Acute encephalopathy Sinus bradycardia, no evidence of AV block Hyperammonemia Recent hospitalization secondary to lower extremity edema and facial swelling, likely secondary to liver disease History of liver cirrhosis secondary to alcohol abuse Coagulopathy secondary to liver disease Elevated LFTs Thrombocytopenia History of hepatitis C History of heroin use, 2010 Continued alcohol use Nicotine dependence PLAN: EKG reveals sinus bradycardia without AV block Hold propranolol Continue telemetry monitoring Further recommendations pending patient course Nurse practitioner note has been reviewed by physician. Signing provider agrees with the documented findings, assessment, and plan of care documented by FIRER KILN as a scribe. Past Medical History Past Medical History: Hypertension History of Any Multi-Drug Resistant Organisms: None Reported Past Surgical History: Tonsillectomy Additional Past Surgical History / Comment(s): Pericentisis Past Anesthesia/Blood Transfusion Reactions: No Reported Reaction Past Psychological History: No Psychological Hx Reported Smoking Status: Current every day smoker Past Alcohol Use History: Daily Past Drug Use History: IV Drug Use, Marijuana, Prescription Drug Abuse - Past Family History Mother Family Medical History: Hyperlipidemia Medications and Allergies Home Medications Medication Instructions Recorded Confirmed Type Albuterol Nebulized [Ventolin 2.5 mg INHALATION RT-TID PRN 12/17/23 12/19/23 History Nebulized] Ferrous Sulfate [Feosol] 325 mg PO DAILY 12/17/23 12/19/23 History Furosemide [Lasix] 40 mg PO BID 12/17/23 12/19/23 History Pantoprazole Sodium [Protonix] 20 mg PO BID 12/17/23 12/19/23 History Propranolol [Inderal] 20 mg PO TID 12/17/23 12/19/23 History Spironolactone [Aldactone] 50 mg PO DAILY 12/17/23 12/19/23 History Sucralfate [Carafate] 1 gm PO TID 12/17/23 12/19/23 History Amoxic-Pot Clav 875-125Mg 1 tab PO BID 12/19/23 12/19/23 History [Augmentin 875-125] predniSONE 40 mg PO DAILY 12/19/23 12/19/23 History Allergies Allergy/AdvReac Type Severity Reaction Status Date / Time No Known Allergies Allergy Verified 12/19/23 12:26 Physical Exam Vitals: Vital Signs Temp Pulse Pulse Resp BP BP Pulse Ox 12/20/23 08:00 98.2 F 68 18 104/59 99 12/20/23 00:23 98.4 F 65 15 105/59 99 12/19/23 19:45 98.0 F 61 14 130/68 96 12/19/23 19:26 98.7 F 64 18 110/91 96 12/19/23 10:46 97.7 F 41 L 20 138/86 100 Intake and Output 12/19/23 12/20/23 12/20/23 22:59 06:59 14:59 Output Total 650 650 Balance -650 -650 Output: Urine 650 650 Uretheral (Vasques) 650 Other: Weight 99.79 kg Results 12/20/23 06:35 12/20/23 06:35 Cardiac Enzymes 12/19/23 12/19/23 Range/Units 11:19 11:19 AST 99 H (17-59) U/L Troponin I 0.014 (0.000-0.034) ng/mL CBC 12/19/23 Range/Units 11:19 WBC 10.0 (3.8-10.6) k/uL RBC 3.58 L (4.30-5.90) m/uL Hgb 11.5 L (13.0-17.5) gm/dL Hct 36.9 L (39.0-53.0) % Plt Count 95 L D (150-450) k/uL Comprehensive Metabolic Panel 12/19/23 Range/Units 11:19 Sodium 132 L (137-145) mmol/L Potassium 3.5 (3.5-5.1) mmol/L Chloride 103 (98-107) mmol/L Carbon Dioxide 28 (22-30) mmol/L BUN 9 (9-20) mg/dL Creatinine 0.59 L (0.66-1.25) mg/dL Glucose 90 (74-99) mg/dL Calcium 7.6 L (8.4-10.2) mg/dL AST 99 H (17-59) U/L ALT 38 (4-49) U/L Alkaline Phosphatase 331 H (38-126) U/L Total Protein 6.7 (6.3-8.2) g/dL Albumin 2.9 L (3.5-5.0) g/dL Current Medications Generic Name Dose Route Start Last Admin Trade Name Freq PRN Reason Stop Dose Admin Sodium Chloride 1,000 mls @ 130 mls/hr 12/19/23 14:45 12/20/23 08:20 Saline 0.9% IV Not Given .[id number] [facility] Lactulose 20 gm 12/19/23 18:00 12/20/23 05:52 Lactulose 20 Gm/30 Ml Cup PO Not Given QID [facility] Naloxone HCl 0.2 mg 12/19/23 14:41 Naloxone 0.4 Mg/Ml 1 Ml Vial IV Q2M PRN Opioid Reversal Rifaximin 550 mg 12/19/23 21:00 12/20/23 05:52 Rifaximin 550 Mg Tablet PO 01/18/24 20:59 Not Given BID [facility] Protocol Intake and Output 12/19/23 12/20/23 12/20/23 22:59 06:59 14:59 Output Total 650 650 Balance -650 -650 Output: Urine 650 650 Uretheral (Vasques) 650 Other: Weight 99.79 kg 12/19/23 11:19 12/19/23 11:19
[2023-12-20 13:30] LABS: INR 2.5 sec (0.93-1.11); Prothrombin Time 25.4 sec (9.9-11.9)
[2023-12-20] MEDS: POTASSIUM CHLORIDE ER 20 MEQ TAB.ER PO STA (15:31)
[2023-12-20] MEDS: POTASSIUM CHLORIDE 10 MEQ in WATER FOR INJECTION 1 100ML.BAG IVPB SCH (15:31)
--- NOTE | 2023-12-20 15:37 | P.PN ---
Subjective Progress Note Date: 12/20/23 Hospital Course: 38-year-old male with past medical history of alcoholic cirrhosis of the liver and hepatitis C who presents emergency department via EMS from incarceration for altered mental status. Patient was recently admitted on 12/16 for evaluation of angioedema and discharged on 12/17. He was admitted on 12/18 for evaluation of acute encephalopathy. Subjective: Patient seen at bedside. No acute events overnight. Patient states he feels confused. He denies any fevers, chills, chest pain, shortness of breath, abdominal pain, nausea, vomiting, or diarrhea. No bowel movements as of yet. Vasques catheter in place. Pertinent positives and negatives discussed above, a complete review of systems was preformed and all the other systems were negative. Vitals Signs Reviewed. Patient is afebrile, normotensive, hemodynamically stable satting well on room air. General: non toxic, no distress, appears at stated age, normal weight Derm: no unusual rashes/lesions, warm Head: atraumatic, normocephalic, symmetric Eyes: EOMI, no lid lag, anicteric sclera, pupils equal round reactive to light ENT: Nose and ears atraumatic Neck: No cervical lymphadenopathy, trachea midline, supple Mouth: no lip lesion, mucus membranes moist Cardiovascular: S1S2 reg, no murmur, positive dorsalis pedis pulse bilateral, no edema Lungs: Decreased air entry bilaterally, no rhonchi, no rales, no accessory muscle use Abdominal: soft, nontender to palpation, no guarding Ext: muscle strength 5 out of 5 in all 4 extremities grossly, no gross muscle atrophy, no contractures, Neuro: CN II-XI grossly intact, no gross focal neuro deficits Psych: Alert, oriented, appropriate affect Data Reviewed Today: Patient Labs: WBCs 8.85, hemoglobin 9.3, MCV 100.3, platelets 63. PT 25.4, INR 2.5. Sodium 139, potassium 2.8,, chloride 108, BUN 9.3, creatinine 0.6, glucose 85, calcium 7.1, mag 1.5 Imaging: CT abdomen pelvis showed some mild ileus within the pelvis, splenomegaly at 13.9 cm without hepatic abnormality Assessment and Plan: Acute encephalopathy, multiple possible etiologies: Recent corticosteroid use vs. hyponatremia vs. hepatic -Lactulose 20 g p.o. 4 times daily Rifaximin 550 mg p.o. twice daily Monitor clinical status Rule out spontaneous bacterial peritonitis, abdominal tenderness and guarding on physical exam Patient is afebrile CT abdomen pelvis stat with no contrast Sinus bradycardia without AV block on EKG Cardiology consulted Propranolol held Cardiac telemetry Hypokalemia -40 mEq PO once 40 milliequivalents IV potassium chloride Hypomagnesemia -2 g IV mag sulfate repleted Decompensated liver cirrhosis, transaminitis, hyperbilirubinemia -Follow-up CT Follow up labs Thrombocytopenia Continue to monitor Macrocytic anemia Continue to monitor F none E will replete as needed N heart healthy A dependently Code Status: Full Anticipated discharge place: Pending clinical course Anticipated discharge time: Pending clinical course Patient was seen and examined by me and the resident. I agree with the subjective and objective as above. We discussed the assessment and plan as documented below: Patient reports no complaints. History of heavy EtOH abuse. Also Hep C positive. Ammonia 74 12/18. Hepatic encephalopathy: Continue Lactulose 20g PO QID. Repeat Ammonia level tomorrow. Hypokalemia: KCl 40 meq PO x 1 and 40 meq IV x 1 today. Repeat CMP and Mag tomorrow. Sinus bradycardia: Cardiology discontinued Propranolol, no signs of AV block. Hepatitis C: Outpatient ID followup. Thrombocytopenia: Likely due to above. Macrocyctic anemia: Obtain B12 and Folate. Objective - Vital Signs Vital signs: Vital Signs Temp 98.4 F 12/20/23 00:23 Pulse 65 12/20/23 00:23 Resp 15 12/20/23 00:23 BP 105/59 12/20/23 00:23 Pulse Ox 99 12/20/23 00:23 FiO2 Intake & Output 12/19/23 12/20/23 12/20/23 18:59 06:59 18:59 Output Total 1300 Balance -1300 Weight 99.79 kg 99.79 kg Output: Urine 1300 Uretheral (Vasques) 650 - Labs CBC & Chem 7: 12/20/23 06:35 12/20/23 06:35 Labs: Abnormal Lab Results - Last 24 Hours (Table) 12/19/23 12/19/23 12/19/23 Range/Units 11:19 11:19 11:19 RBC 3.58 L (4.30-5.90) m/uL Hgb 11.5 L (13.0-17.5) gm/dL Hct 36.9 L (39.0-53.0) % MCV 103.0 H (80.0-100.0) fL Plt Count 95 L D (150-450) k/uL Monocytes # (Manual) 1.20 H (0-1.0) k/uL Sodium 132 L (137-145) mmol/L Creatinine 0.59 L (0.66-1.25) mg/dL Calcium 7.6 L (8.4-10.2) mg/dL Total Bilirubin 7.6 H (0.2-1.3) mg/dL AST 99 H (17-59) U/L Alkaline Phosphatase 331 H (38-126) U/L Ammonia 74 H (<30) umol/L Albumin 2.9 L (3.5-5.0) g/dL
[2023-12-20] MEDS: MAGNESIUM SULFATE-D5W PMX 1 GM in DEXTROSE/WATER 1 100ML.BAG IVPB SCH (16:51)
[2023-12-21 09:38] LABS: Basophils # (A) 0.03 X 10*3/uL (0.00-0.10); Basophils % (A) 0.5 %; Eosinophils # (A) 0.15 X 10*3/uL (0.04-0.35); Eosinophils % (A) 2.7 %; HCT 28.6 % (39.6-50.0); HGB 8.8 g/dL (13.0-17.0); Immature Platelet Fraction 4.8 % (1.1-6.1); Lymphocytes # (A) 1.21 X 10*3/uL (0.90-5.00); Lymphocytes % (A) 22.2 %; MCH 31.3 pg (27.0-32.0); MCHC 30.8 g/dL (32.0-37.0); MCV 101.8 FL (80.0-97.0); Mean Platelet Volume 11.2 FL (9.5-12.2); Monocytes # (A) 0.81 X 10*3/uL (0.20-1.00); Monocytes % (A) 14.8 %; NRBC Per 100 WBC 0 X 10*3/uL (0.00-0.01); Neutrophils # (A) 3.24 X 10*3/uL (1.80-7.70); Neutrophils % (A) 59.4 %; Platelet Count 56 X 10*3/uL (140-440); RBC 2.81 X 10*6/uL (4.40-5.60); RDW 15.2 % (11.5-14.5); WBC 5.46 X 10*3/uL (4.50-10.00)
--- NOTE | 2023-12-21 11:51 | P.PN ---
Subjective HISTORY OF PRESENT ILLNESS: This is a 38-year-old male with a past medical history significant for hepatitis C, liver cirrhosis, ascites, heroin use, and nicotine dependence. 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 We have been asked to see the patient in consultation for heart block. Patient examined at the bedside. The patient was just admitted to the hospital from December 17, 2023 until December 19, 2023 for lower extremity edema and facial swelling. He was discharged back to senior care. Patient presented back to the hospital secondary to altered mental status. The patient does not remember any of the events leading up to him coming to the hospital. Patient's mentation does seem to be improving. He currently denies chest pain or pressure. Denies shortness of breath. DIAGNOSTICS: - EKG reveals sinus bradycardia with no signs of acute ischemia - Chest xray negative for acute process - Laboratory data: WBC 10.0. Hemoglobin 11.5. Platelet count 95. Sodium 132. Potassium 3.5. BUN 9. Creatinine 0.59. AST 99. ALT 38. Alkaline phosphatase 331. Ammonia 74. - Current home cardiac medications include Lasix 40 mg twice a day, propranolol 20 mg 3 times a day, Aldactone 50 mg daily. - Most recent echocardiogram obtained this week revealed ejection fraction 60 to 65% - Cardiac catheterization history: Patient denies 12/21/2023 Patient examined this morning the bedside. Patient denies chest pain or pressure. He denies shortness of breath. Heart rate remains in the 60s. His propranolol remains on hold. Blood pressure 114/65. PHYSICAL EXAM: VITAL SIGNS: Reviewed. GENERAL: Well-developed in no acute distress. HEENT: Head is normocephalic. Pupils are equal, round. Sclerae anicteric. Mucous membranes of the mouth are moist. Neck supple. No JVD or thyromegaly LUNGS: Respirations even and unlabored. Lungs essentially clear to auscultation bilaterally. HEART: Regular rate and rhythm. S1 and S2 heard. ABDOMEN: Soft. Nondistended. Nontender. EXTREMITIES: Normal range of motion. No clubbing or cyanosis. Peripheral pulses intact. No lower extremity edema NEUROLOGIC: Awake and alert. ASSESSMENT: Acute encephalopathy Sinus bradycardia, no evidence of AV block Hyperammonemia Recent hospitalization secondary to lower extremity edema and facial swelling, likely secondary to liver disease History of liver cirrhosis secondary to alcohol abuse Coagulopathy secondary to liver disease Elevated LFTs Thrombocytopenia History of hepatitis C History of heroin use, 2010 Continued alcohol use Nicotine dependence PLAN: EKG reveals sinus bradycardia without AV block Hold propranolol Continue telemetry monitoring Stable from a cardiac standpoint We will sign off. Please reconsult if needed. Nurse practitioner note has been reviewed by physician. Signing provider agrees with the documented findings, assessment, and plan of care documented by JOURNEY[employer] ELECT[employer]IC[employer] PV INSTALLER as a scribe. Objective - Vital Signs Vital signs: Vital Signs Temp 98.0 F 12/21/23 07:50 Pulse 61 12/21/23 07:50 Resp 18 12/21/23 07:50 BP 114/65 12/21/23 07:50 Pulse Ox 96 12/21/23 07:50 FiO2 Intake & Output 12/20/23 12/21/23 12/21/23 18:59 06:59 18:59 Output Total 750 900 Balance -750 -900 Output: Urine 750 900 Other: Voiding Method Indwelling Catheter # Bowel Movements 1 - Labs CBC & Chem 7: 12/21/23 04:36 12/20/23 06:35 Labs: Abnormal Lab Results - Last 24 Hours (Table) 12/20/23 12/20/23 12/20/23 Range/Units 06:35 06:35 06:35 RBC 3.05 L (4.40-5.60) X 10*6/uL Hgb 9.3 L (13.0-17.0) g/dL Hct 30.6 L (39.6-50.0) % MCV 100.3 H (80.0-97.0) FL MCHC 30.4 L (32.0-37.0) g/dL RDW 15.5 H (11.5-14.5) % Plt Count 63 L (140-440) X 10*3/uL Monocytes # 1.27 H (0.20-1.00) X 10*3/uL PT 25.4 H (9.9-11.9) sec INR 2.50 H (0.93-1.11) sec Potassium 2.8 L (3.5-5.5) mmol/L Calcium 7.1 L (8.7-10.3) mg/dL Ammonia (<30) umol/L 12/21/23 12/21/23 Range/Units 04:36 04:36 RBC 2.81 L (4.40-5.60) X 10*6/uL Hgb 8.8 L (13.0-17.0) g/dL Hct 28.6 L (39.6-50.0) % MCV 101.8 H (80.0-97.0) FL MCHC 30.8 L (32.0-37.0) g/dL RDW 15.2 H (11.5-14.5) % Plt Count 56 L (140-440) X 10*3/uL Monocytes # (0.20-1.00) X 10*3/uL PT (9.9-11.9) sec INR (0.93-1.11) sec Potassium (3.5-5.5) mmol/L Calcium (8.7-10.3) mg/dL Ammonia 79 H (<30) umol/L
[2023-12-21 12:01] LABS: ALT 27 U/L (10-49); AST 41 U/L (14-35); Albumin 2.2 g/dL (3.8-4.9); Alkaline Phosphatase 190 U/L (41-126); BUN/Creat Ratio 7.75 Ratio (12.00-20.00); Blood Urea Nitrogen 6.2 mg/dL (9.0-27.0); Calcium 7.1 mg/dL (8.7-10.3); Carbon Dioxide 24.1 mmol/L (21.6-31.8); Chloride 108 mmol/L (96-109); Globulin 2.2 g/dL (1.6-3.3); Glucose 117 mg/dL (70-110); Potassium 3.6 mmol/L (3.5-5.5); Sodium 137 mmol/L (135-145); Total Bilirubin 4.6 mg/dL (0.3-1.2); Total Protein 4.4 g/dL (6.2-8.2)
[2023-12-21] MEDS: LACTULOSE 20 GM/30 ML CUP PO SCH (13:08)
--- NOTE | 2023-12-21 16:51 | P.PN ---
Subjective Progress Note Date: 12/21/23 Hospital Course: 38-year-old male with past medical history of alcoholic cirrhosis of the liver and hepatitis C who presented to emergency department via EMS from incarceration for altered mental status. Patient was recently admitted on 12/16 for evaluation of angioedema and discharged on 12/17. He was admitted on 12/18 for evaluation of acute encephalopathy. Subjective: Patient seen at bedside. No acute events overnight. Patient states he feels confused. He denies any fevers, chills, chest pain, shortness of breath, abdominal pain, nausea, vomiting, or diarrhea. Patient has begun to have bowel movements and the Vasques catheter was removed. Pertinent positives and negatives discussed above, a complete review of systems was preformed and all the other systems were negative. Vitals Signs Reviewed. Patient is afebrile, normotensive, hemodynamically stable satting well on room air. General: non toxic, no distress, appears at stated age, normal weight Derm: no unusual rashes/lesions, warm Cardiovascular: S1S2 reg, no murmur, positive dorsalis pedis pulse bilateral, no edema Lungs: Equal air entry bilaterally, no rhonchi, no rales, no accessory muscle use Abdominal: soft, nontender to palpation, no guarding Psych: Alert, oriented to self, time and place, but slightly confused Data Reviewed Today: Pertinent Labs: RBC 2.81 hemoglobin 8.8 MCV 101.8 platelets 56. BUN 6.2 glucose 117 calcium 7.1 bilirubin 4.6 ALP 190 ammonia 79 B12 3177. Imaging: No new imaging Assessment and Plan: Acute hepatic encephalopathy -Lactulose increased to 30 g PO 4 times daily Rifaximin 550 mg PO 3 times daily Follow-up ammonia level in a.m. Sinus bradycardia without AV block on EKG Cardiology consulted, signed off Propranolol held Cardiac telemetry Hepatitis C -outpatient followup with ID Thrombocytopenia & macrocytic anemia likely secondary to above Hypokalemia, resolved Hypomagnesemia, resolved F NS 0.9% @130cc/hr E will replete as needed N heart healthy A independently Code Status: Full Anticipated discharge place: Home Anticipated discharge time: Pending clinical course Patient was seen and examined by me and the resident. I agree with the subjective and objective as above. We discussed the assessment and plan as documented below: Patient reports no complaints. History of heavy EtOH abuse. Also Hep C positive. Ammonia 79. Hepatic encephalopathy: Increase Lactulose to 30g PO QID and titrate to 2-4BM. Rifaximin 550 mg PO TID. Repeat Ammonia level tomorrow. Sinus bradycardia: Cardiology discontinued Propranolol, no signs of AV block. Hepatitis C: Outpatient ID followup. Thrombocytopenia: Likely due to above. Macrocyctic anemia: B12 and Folate within normal limits. Objective - Vital Signs Vital signs: Vital Signs Temp 98.6 F 12/21/23 00:34 Pulse 64 12/21/23 00:34 Resp 16 12/21/23 00:34 BP 104/60 12/21/23 00:34 Pulse Ox 99 12/21/23 00:34 FiO2 Intake & Output 12/20/23 12/21/23 12/21/23 18:59 06:59 18:59 Output Total 750 900 Balance -750 -900 Output: Urine 750 900 Other: Voiding Method Indwelling Catheter # Bowel Movements 1 - Labs CBC & Chem 7: 12/21/23 04:36 12/21/23 04:36 Labs: Abnormal Lab Results - Last 24 Hours (Table) 12/20/23 12/20/23 12/20/23 Range/Units 06:35 06:35 06:35 RBC 3.05 L (4.40-5.60) X 10*6/uL Hgb 9.3 L (13.0-17.0) g/dL Hct 30.6 L (39.6-50.0) % MCV 100.3 H (80.0-97.0) FL MCHC 30.4 L (32.0-37.0) g/dL RDW 15.5 H (11.5-14.5) % Plt Count 63 L (140-440) X 10*3/uL Monocytes # 1.27 H (0.20-1.00) X 10*3/uL PT 25.4 H (9.9-11.9) sec INR 2.50 H (0.93-1.11) sec Potassium 2.8 L (3.5-5.5) mmol/L Calcium 7.1 L (8.7-10.3) mg/dL Ammonia (<30) umol/L 12/21/23 Range/Units 04:36 RBC (4.40-5.60) X 10*6/uL Hgb (13.0-17.0) g/dL Hct (39.6-50.0) % MCV (80.0-97.0) FL MCHC (32.0-37.0) g/dL RDW (11.5-14.5) % Plt Count (140-440) X 10*3/uL Monocytes # (0.20-1.00) X 10*3/uL PT (9.9-11.9) sec INR (0.93-1.11) sec Potassium (3.5-5.5) mmol/L Calcium (8.7-10.3) mg/dL Ammonia 79 H (<30) umol/L
[2023-12-21] MEDS: RIFAXIMIN 550 MG TABLET PO SCH (17:09)
[2023-12-22 04:42] VITALS: RESP 18
[2023-12-22 07:58] LABS: Basophils % (A) 1 %; Eosinophils # (A) 0.1 k/uL (0-0.7); Eosinophils % (A) 3 %; HCT 31.2 % (39.0-53.0); Hypochromasia Marked; Lymphocytes # (A) 0.6 k/uL (1.0-4.8); Lymphocytes % (A) 15 %; MCH 31.7 pg (25.0-35.0); MCHC 30.5 g/dL (31.0-37.0); MCV 103.7 fL (80.0-100.0); Macrocytosis Moderate; Monocytes # (A) 0.7 k/uL (0-1.0); Monocytes % (A) 15 %; Neutrophils # (A) 2.8 k/uL (1.3-7.7); Neutrophils % (A) 63 %; Platelet Count 54 k/uL (150-450); RDW 14.9 % (11.5-15.5); WBC 4.4 k/uL (3.8-10.6)
[2023-12-22 08:04] LABS: HGB 9.5 gm/dL (13.0-17.5)
[2023-12-22 08:07] LABS: African American GFR (CKD) >90 (>60 ml/min/1.73 sqM); Anion Gap 1 mmol/L; Blood Urea Nitrogen 4 mg/dL (9-20); Calcium 7.3 mg/dL (8.4-10.2); Carbon Dioxide 25 mmol/L (22-30); Chloride 109 mmol/L (98-107); Glucose 125 mg/dL (74-99); Non-African American GFR(CKD) >90 (>60 ml/min/1.73 sqM); Potassium 3.5 mmol/L (3.5-5.1); Sodium 135 mmol/L (137-145)
[2023-12-22] MEDS ORDERED: ALBUTEROL NEBULIZED 2.5 MG/3 ML INHALATION PRN (08:33)
[2023-12-22] MEDS ORDERED: FUROSEMIDE 20 MG TAB PO SCH (09:00)
[2023-12-22] MEDS ORDERED: NON FORMULARY DRUG (Pantoprazole Sodium [Protonix] 20 MG Tablet) PO SCH (09:00)
[2023-12-22] MEDS: SUCRALFATE 1 GM TAB PO SCH (09:18)
[2023-12-22] MEDS: SPIRONOLACTONE 25 MG TAB PO SCH (09:18)
[2023-12-22] MEDS: FUROSEMIDE 40 MG TAB PO SCH (09:18)
[2023-12-22] MEDS: FERROUS SULFATE 325 MG TAB PO SCH (09:18)
[2023-12-22] MEDS: PANTOPRAZOLE 40 MG TABLET PO SCH (09:18)
[2023-12-22 10:19] VITALS: BP 127/79; PULSE 60; TEMP 97.5
--- NOTE | 2023-12-22 11:00 | P.DS ---
Providers Date of admission: 12/19/23 14:48 Discharge Diagnosis: Hepatic encephalopathy Sinus bradycardia without AV block Hepatitis C Thrombocytopenia Macrocytic anemia Hypokalemia Hypomagnesemia Hospital Course: 38-year-old male with past medical history of alcoholic cirrhosis of the liver and hepatitis C who presented to emergency department via EMS from incarceration for altered mental status. History was quite limited due to patient's altered mental status. Patient was recently admitted on 12/16 for evaluation of angioedema and discharged on 12/17. In the emergency room a chest x-ray was unremarkable. CT of the head without contrast was also unremarkable. EKG showed sinus bradycardia. Laboratory evaluation in the ED showing WBCs 10, hemoglobin 11.5 with MCV of 103, platelets 95. Sodium 132, potassium 3.5, chloride 103, bicarb 28, BUN 9, creatinine 0.59, glucose 90. Bilirubin 7.6, AST 99, ALT 38, ALP 331, albumin 2.9. Urinalysis was unremarkable. UDS was negative. He was admitted on 12/18 for evaluation of acute encephalopathy. Patient was started on lactulose and rifaximin. He began having bowel movements and ammonia levels have improved. The patient's mentation is much improved and he is looking forward to discharge. He will be discharged on lactulose and he will follow-up outpatient with GI and infectious disease. Patient will be discharged home with roommate and son. Case discussed extensively with patient as well as his father Biju French. Will be discharged with handouts on hepatic encephalopathy & hepatitis C. Pt seen and examined at bedside: Patient is lying comfortably in bed in no acute distress alert and oriented x 4. He denies any abdominal pain, fevers, chills, or any other complaints at this time. Vital signs reviewed and stable: General: non toxic, no distress, appears at stated age, normal weight Cardiovascular: S1S2 reg, no murmur, positive dorsalis pedis pulse bilateral, no edema Lungs: Decreased air entry bilaterally, no rhonchi, no rales, no accessory muscle use Abdominal: soft, nontender to palpation, no guarding Psych: Alert, oriented, appropriate affect A total of 20 minutes were spent preparing this complex discharge summary. Patient was discharged on . Attending physician: Laura Perez MD Primary care physician: Parmjit Schulzchristine [place] Hospital Course: Patient was seen and examined by me and the resident. I agree with the mccollum bjective and objective as above. We discussed the assessment and plan as documented below: Patient reports no complaints. History of heavy EtOH abuse. Also Hep C positive. Ammonia 63. Mentation significantly improved. Plans for discharge home today. Prescription for Aldactone, Rifaximin, Lasix and Lactulose sent to the pharmacy. Advised to follow up with his Software Developer Consultant within 1 week of discharge. Advised to follow up with ID for treatment of Hep C. Patient verbalized understanding of the plan. Discharge Diagnosis: Hepatic encephalopathy Sinus bradycardia Hepatitis C History of EtOH abuse Thrombocytopenia Macrocyctic anemia Patient Condition at Discharge: Stable Plan - Discharge Summary Discharge Rx Participant: No New Discharge Prescriptions: New Spironolactone [Aldactone] 25 mg PO DAILY #30 tab Rifaximin [Xifaxan] 550 mg PO TID #90 tab Furosemide [Lasix] 40 mg PO DAILY #30 tab Lactulose [Cephulac] 20 gm PO QID #3600 ml Continue Sucralfate [Carafate] 1 gm PO TID Amoxic-Pot Clav 875-125Mg [Augmentin 875-125] 1 tab PO BID predniSONE 40 mg PO DAILY Ferrous Sulfate [Feosol] 325 mg PO DAILY Pantoprazole Sodium [Protonix] 20 mg PO BID Albuterol Nebulized [Ventolin Nebulized] 2.5 mg INHALATION RT-TID PRN PRN Reason: Shortness Of Breath Discontinued Propranolol [Inderal] 20 mg PO TID Furosemide [Lasix] 40 mg PO BID Spironolactone [Aldactone] 50 mg PO DAILY Discharge Medication List Albuterol Nebulized [Ventolin Nebulized] 2.5 mg INHALATION RT-TID PRN 12/17/23 [History] Ferrous Sulfate [Feosol] 325 mg PO DAILY 12/17/23 [History] Pantoprazole Sodium [Protonix] 20 mg PO BID 12/17/23 [History] Sucralfate [Carafate] 1 gm PO TID 12/17/23 [History] Amoxic-Pot Clav 875-125Mg [Augmentin 875-125] 1 tab PO BID 12/19/23 [History] predniSONE 40 mg PO DAILY 12/19/23 [History] Furosemide [Lasix] 40 mg PO DAILY #30 tab 12/22/23 [Rx] Lactulose [Cephulac] 20 gm PO QID #3600 ml 12/22/23 [Rx] Rifaximin [Xifaxan] 550 mg PO TID #90 tab 12/22/23 [Rx] Spironolactone [Aldactone] 25 mg PO DAILY #30 tab 12/22/23 [Rx] Follow up Appointment(s)/Referral(s): Lawanda Cast MD [STAFF PHYSICIAN] - 1 Week (Please call office to schedule appointment) Edyta Carson MD [STAFF PHYSICIAN] - 1 Week (Please call office to schedule appointment ) Parmjit Cai MD [Primary Care Provider] - 1-2 days (Please call office to schedule appointment ) Patient Instructions/Handouts: Hepatitis C (DC), Hepatic Encephalopathy (DC) Activity/Diet/Wound Care/Special Instructions: PATIENT WILL FOLLOW UP OUTPATIENT WITH HIS PERSONAL GI DOCTOR PLEASE HAVE PCP REFER YOU TO AN INFECTIOUS DISEASE SPECIALIST Discharge Disposition: HOME SELF-CARE
== END 2023-12-22 13:08 | disposition home or self-care (01) | DRG 280 ==
LOC: EC 10:41 → 4SSUR 14:48
PROVIDERS: ADMIT Internal Medicine; ATTEND Internal Medicine
DX: K76.82 Hepatic encephalopathy (principal); K70.30 Alcoholic cirrhosis of liver without ascites; E72.20 Disorder of urea cycle metabolism, unspecified; D68.4 Acquired coagulation factor deficiency; K56.7 Ileus, unspecified; D69.59 Other secondary thrombocytopenia; F10.10 Alcohol abuse, uncomplicated; I10 Essential (primary) hypertension; B19.20 Unspecified viral hepatitis C without hepatic coma; D53.9 Nutritional anemia, unspecified; F17.210 Nicotine dependence, cigarettes, uncomplicated; E87.6 Hypokalemia; F11.91 Opioid use, unspecified, in remission; E83.42 Hypomagnesemia; E80.6 Other disorders of bilirubin metabolism; R00.1 Bradycardia, unspecified; R16.1 Splenomegaly, not elsewhere classified; Y90.0 Blood alcohol level of less than 20 mg/100 ml; I45.9 Conduction disorder, unspecified; Z79.899 Other long term (current) drug therapy; Z79.52 Long term (current) use of systemic steroids; Z65.8 Other specified problems related to psychosocial circumstances
CPT/HCPCS: 36415; 70450; 71046; 74176; 80048; 80053; 80143; 80179; 80306; 80320; 81003; 82140; 82607; 82746; 83735; 84484; 85025; 85610; 93005; 96361; 96374; 96375; 99285